=== PATIENT | male | born 1960 | race African-American/Black ===

== ENCOUNTER 2018-01-16 23:19 | Observation (INO) | payer BC, SELFPAY ==
[2018-01-16] MEDS ORDERED: ASPIRIN 325 MG TAB ONE (23:42)
[2018-01-16] MEDS ORDERED: METOPROLOL TARTRATE 5 MG/5 ML INJ IV ONE (23:42)
[2018-01-16 23:45] LABS: Absolute Lymphocytes (CBC) 2.5 K/uL (0.7-4.9); Absolute Monocytes 0.8 K/uL (0.1-1.3); Absolute Neutrophil 5.6 K/uL (1.8-8.0); Basophils % 0.6 % (0-1.3); Eosinophils % 4.5 % (0-4.4); Hematocrit 48.9 % (39.6-49.0); Lymphocytes % 27.1 % (15.3-44.8); MCH 31.6 pg (27.0-35.0); MCV 92.8 fL (80-100); MPV 9.2 fL (7.6-11.3); Monocytes % 8.3 % (3.3-12.3); RBC Red Blood Cell Count 5.27 M/uL (4.33-5.43)
[2018-01-16 23:51] LABS: Protime INR 0.97
[2018-01-17 00:05] LABS: ALT/SGPT 24 U/L (12-78); AST/SGOT 15 U/L (15-37); Albumin 3.6 g/dL (3.4-5.0); Alkaline Phosphatase 184 U/L (45-117); BUN Blood Urea Nitrogen 10 mg/dL (7-18); Bicarbonate 28 mmol/L (21-32); Bilirubin Direct < 0.1 mg/dL (0-0.2); Bilirubin Total 0.2 mg/dL (0.2-1.0); CKMB Creatine Kinase MB 1.2 ng/mL (0.3-3.6); Creatine Phosphokinase 128 U/L (39-308); Glucose Level 145 mg/dL (74-106); Magnesium 2.1 mg/dL (1.8-2.4); NT PRO-BNP 41 pg/mL (<125); Potassium 3.3 mmol/L (3.5-5.1); Protein, Total 8.5 g/dL (6.4-8.2); Sodium Level 143 mmol/L (136-145)
[2018-01-17] MEDS ORDERED: METOPROLOL TARTRATE 5 MG/5 ML INJ IV ONE (00:11)
[2018-01-17] MEDS ORDERED: ENOXAPARIN 100 MG/ML SYR SQ ONE (00:26)
[2018-01-17] MEDS ORDERED: METOPROLOL TAR 50 MG TAB ONE (00:26)
[2018-01-17] MEDS ORDERED: dilTIAZem HCl 50 MG/10 ML VIAL IV ONE (00:40)
--- NOTE | 2018-01-17 01:31 | EDPHYS ---
Physician Documentation [facility] Name: Jl aLra Age: 57 yrs Sex: Male : 1960 Arrival Date: 01/16/2018 Time: 23:22 Bed 2 Private MD: ED Physician Basilio Hung HPI: 01/17 00:23 This 57 yrs old Black Male presents to ER via Wheelchair with complaints of pm1 Palpitations. 00:23 The patient presents with a history of heart racing. Context: The symptoms occur at pm1 rest. Onset: The symptoms/episode began/occurred today, at 22:00. Duration: The patient or guardian reports a single episode, that is still ongoing. Modifying factors: The symptoms are aggravated by light activity, Standing The symptoms are alleviated by nothing. Associated signs and symptoms: Pertinent positives: chest pain, lightheadedness, SOB, Pertinent negatives: fever, nausea, vomiting. Severity of symptoms: in the emergency department the symptoms are unchanged. The patient has experienced similar episodes in the past, a few times, with the last episode occurring About 1 year ago. Patient was treated in [place] ER and transfer here to this facility. Patient had atrial fibrillation / flutter and was medically managed. Patient decided to stop taking the medications shortly after discharge from the hospital 1 year ago. The patient has not recently seen a physician. Patient is not currently taking any medications. Historical: - Allergies: 01/16 23:38 No Known Allergies; lp1 - Home Meds: 23:38 None [Active]; lp1 - PMHx: 23:38 Hypertension; lp1 - PSHx: 23:38 None; lp1 - Immunization history:: Adult Immunizations up to date. - Social history:: Smoking status: Patient uses tobacco products, smokes one pack cigarettes per day. - Ebola Screening: : No symptoms or risks identified at this time. ROS: 01/17 00:31 Constitutional: Negative for fever, chills, and weight loss, Eyes: Negative for injury, pm1 pain, redness, and discharge, ENT: Negative for injury, pain, and discharge, Neck: Negative for injury, pain, and swelling. Abdomen/GI: Negative for abdominal pain, nausea, vomiting, diarrhea, and constipation, Back: Negative for injury and pain, : Negative for injury, bleeding, discharge, and swelling, MS/Extremity: Negative for injury and deformity, Skin: Negative for injury, rash, and discoloration, Neuro: Negative for headache, weakness, numbness, tingling, and seizure. Cardiovascular: Positive for chest pain, of the anterior aspect of left upper chest, palpitations, Negative for edema. Respiratory: Positive for shortness of breath, Negative for cough, wheezing. Exam: 00:31 Constitutional: This is a well developed, well nourished patient who is awake, alert, pm1 and in no acute distress. Head/Face: Normocephalic, atraumatic. Eyes: Pupils equal round and reactive to light, extra-ocular motions intact. Lids and lashes normal. Conjunctiva and sclera are non-icteric and not injected. Cornea within normal limits. Periorbital areas with no swelling, redness, or edema. ENT: Nares patent. No nasal discharge, no septal abnormalities noted. Tympanic membranes are normal and external auditory canals are clear. Oropharynx with no redness, swelling, or masses, exudates, or evidence of obstruction, uvula midline. Mucous membranes moist. Neck: Trachea midline, no thyromegaly or masses palpated, and no cervical lymphadenopathy. Supple, full range of motion without nuchal rigidity, or vertebral point tenderness. No Meningismus. Chest/axilla: Normal chest wall appearance and motion. Nontender with no deformity. No lesions are appreciated. 00:31 Respiratory: Lungs have equal breath sounds bilaterally, clear to auscultation and percussion. No rales, rhonchi or wheezes noted. No increased work of breathing, no retractions or nasal flaring. Abdomen/GI: Soft, non-tender, with normal bowel sounds. No distension or tympany. No guarding or rebound. No evidence of tenderness throughout. Back: No spinal tenderness. No costovertebral tenderness. Full range of motion. Skin: Warm, dry with normal turgor. Normal color with no rashes, no lesions, and no evidence of cellulitis. MS/ Extremity: Pulses equal, no cyanosis. Neurovascular intact. Full, normal range of motion. 00:31 Cardiovascular: Rate: tachycardic, Rhythm: irregular, Pulses: no pulse deficits are appreciated, Heart sounds: normal, normal S1and S2, no murmur, no rub, no gallop, Edema: is not appreciated. 00:31 ECG was reviewed by the Attending Physician. Initial ECG: Atrial flutter with variable AV block, 148 bpm. After lopressor IV: Atrial flutter 2:1, BPM 119 00:31 Neuro: Orientation: is normal, Motor: is normal, moves all fours. Vital Signs: 01/16 23:37 BP 191 / 100; Pulse 140; Resp 22; Temp 98.4(O); Pulse Ox 100% on R/A; Weight 99.79 kg; lp1 Height 5 ft. 7 in. (170.18 cm); Pain 6/10; 23:45 BP 143 / 110; Pulse 139; Resp 18; ak1 23:50 BP 164 / 113; Pulse 118; Resp 16; Pulse Ox 100% ; ak1 01/17 00:13 BP 162 / 108; Pulse 120; Resp 18; Pulse Ox 100% on R/A; ak1 00:28 BP 152 / 108; Pulse 120; Resp 20; Pulse Ox 100% on R/A; ak1 00:57 BP 126 / 106; Pulse 120; Resp 20; Pulse Ox 97% on R/A; ak1 01:13 BP 130 / 97; Pulse 121; Resp 20; Pulse Ox 98% on R/A; mt 01:32 BP 119 / 99; Pulse 132; Resp 20; Pulse Ox 98% on R/A; mt 02:38 BP 109 / 99; Pulse 123; Resp 20; Pulse Ox 98% on R/A; Pain 0/10; lp1 03:30 BP 112 / 93; Pulse 121; Resp 20; Pulse Ox 99% on R/A; lp1 01/16 23:37 Body Mass Index 34.46 (99.79 kg, 170.18 cm) lp1 MDM: 01/16 23:31 Patient medically screened. pm1 01/17 00:28 ED course: Dr. Hung recommended Cardizem 10 mg IV since Lopressor is currently not pm1 effective. Current heart rate 119. 00:35 Data reviewed: vital signs. Data interpreted: Pulse oximetry: on room air is 100 %. pm1 Interpretation: normal. Counseling: I had a detailed discussion with the patient and/or guardian regarding: the historical points, exam findings, and any diagnostic results supporting the discharge/admit diagnosis, lab results, radiology results, the need for further work-up and treatment in the hospital. 00:55 ED course: Dr. Hung recommend consultation with cardiology since no improvement with pm1 Cardizem . 01:05 ED course: Dr. Chen answering service contacted . pm1 01:28 Physician consultation: Lillian Patino MD was called at 01:28, was contacted at 01:28, pm1 regarding admission, patient's condition, and will see patient in ED. 01/16 23:34 Order name: Basic Metabolic Panel; Complete Time: 00:10 pm01/16 23:34 Order name: CBC with Diff; Complete Time: 00:10 pm01/16 23:34 Order name: Ckmb; Complete Time: 00:10 pm01/16 23:34 Order name: CPK; Complete Time: 00:10 pm01/16 23:34 Order name: LFT's; Complete Time: 00:10 pm01/16 23:34 Order name: Magnesium; Complete Time: 00:10 pm01/16 23:34 Order name: NT PRO-BNP; Complete Time: 00:10 pm01/16 23:34 Order name: PT-INR; Complete Time: 00:10 pm01/16 23:34 Order name: Ptt, Activated; Complete Time: 00:10 pm01/16 23:34 Order name: Troponin (emerg Dept Use Only); Complete Time: 00:30 pm1 01/16 23:34 Order name: XRAY Chest (1 view) pm1 01/16 23:34 Order name: EKG; Complete Time: 23:35 pm01/16 23:34 Order name: Cardiac monitoring; Complete Time: 23:35 pm01/16 23:34 Order name: EKG - Nurse/Tech; Complete Time: 23:35 pm1 01/16 23:34 Order name: IV Saline Lock; Complete Time: 23:35 pm1 01/16 23:34 Order name: Labs collected and sent; Complete Time: 23:35 pm01/16 23:34 Order name: O2 Per Protocol; Complete Time: 23:35 pm01/16 23:34 Order name: O2 Sat Monitoring; Complete Time: 23:35 pm1 Administered Medications: 01/16 23:40 Drug: Aspirin 325 mg Route: PO; ak1 23:45 Follow up: BP 143 / 110; Pulse 139 bpm; Resp 18 bpm ak1 23:45 Drug: Lopressor 5 mg Route: IVP; Site: left antecubital; ak1 23:50 Drug: Lopressor 5 mg Route: IVP; Site: left antecubital; ak1 01/17 00:12 Drug: Lopressor 5 mg Route: IVP; Site: left antecubital; ak1 00:12 Follow up: Response: No adverse reaction ak1 00:28 Drug: Lovenox 1 mg/kg Route: Sub-Q; Site: right lower abdomen; ak1 00:29 Follow up: Response: No adverse reaction ak1 00:28 Drug: Lopressor (metoprolol TARTRATE) 50 mg Route: PO; ak1 00:30 Follow up: Response: No adverse reaction ak1 00:40 Drug: Cardizem 10 mg Route: IVP; Site: left antecubital; ak1 01:48 Follow up: Response: No adverse reaction lp1 01:47 Drug: NS 0.9% 1000 ml Route: IV; Rate: 125 ml/hr; Site: left antecubital; lp1 02:36 Follow up: IV Status: IV converted to saline lock lp1 02:32 Drug: Potassium Effervescent Tablet 50 mEq Route: PO; lp1 03:58 Follow up: Response: No adverse reaction lp1 Disposition: 04:25 Co-signature as Attending Physician, Basilio Hung MD I agree with the assessment and tw4 plan of care. Attestation: The patient's history, exam findings, diagnostics, and a summary of any interventions or procedures was reviewed in detail with Kamar Mccullough NP. Disposition: 01/17/18 01:30 Hospitalization ordered by Lillian Patino for Inpatient Admission. Preliminary diagnosis are Atrial fibrillation and flutter, Chest pain, unspecified, Shortness of breath. - Bed requested for Telemetry/MedSurg (Inpatient). - Status is Inpatient Admission. lp1 - Condition is Stable. - Problem is new. - Symptoms have improved. UTI on Admission? No Signatures: Dispatcher [employer] EDMS Sydnee Whitlock RN RN lp1 Eliane Mcgrath RN RN ak1 Daniela Quinonez RN RN cg Marinas, Patrick, NP NP Basilio Patrick MD MD tw4 Corrections: (The following items were deleted from the chart) 01:30 01:30 Hospitalization Ordered by Lillian Patino MD for Inpatient Admission. Preliminary pm1 diagnosis is Atrial fibrillation and flutter. Bed requested for Telemetry/MedSurg (Inpatient). Status is Inpatient Admission. Condition is Stable. Problem is new. Symptoms have improved. UTI on Admission? No. pm1 01:43 01:30 01/17/2018 01:30 Hospitalization Ordered by Lillian Patino MD for Inpatient cg Admission. Preliminary diagnosis is Atrial fibrillation and flutter; Chest pain, unspecified; Shortness of breath. Bed requested for Telemetry/MedSurg (Inpatient). Status is Inpatient Admission. Condition is Stable. Problem is new. Symptoms have improved. UTI on Admission? No. pm1 01:49 01:43 01/17/2018 01:30 Hospitalization Ordered by Lillian Patino MD for Inpatient cg Admission. Preliminary diagnosis is Atrial fibrillation and flutter; Chest pain, unspecified; Shortness of breath. Bed requested for Telemetry/MedSurg (Inpatient). Status is Inpatient Admission. Condition is Stable. Problem is new. Symptoms have improved. UTI on Admission? No. cg 03:58 01:49 01/17/2018 01:30 Hospitalization Ordered by Lillian Patino MD for Inpatient lp1 Admission. Preliminary diagnosis is Atrial fibrillation and flutter; Chest pain, unspecified; Shortness of breath. Bed requested for Telemetry/MedSurg (Inpatient). Status is Inpatient Admission. Condition is Stable. Problem is new. Symptoms have improved. UTI on Admission? No. cg
--- NOTE | 2018-01-17 01:31 | ER ---
Nurse's Notes [facility] Name: Jl Lara Age: 57 yrs Sex: Male : 1960 Arrival Date: 01/16/2018 Time: 23:22 Bed 2 Private MD: Diagnosis: Atrial fibrillation and flutter;Chest pain, unspecified;Shortness of breath Presentation: 01/16 23:36 Presenting complaint: Patient states: "I felt my heart racing"; States feeling lp1 palpitations that began at 2200, complaint of feeling dizzy upon standing, short of breath, chest pain. Transition of care: patient was not received from another setting of care. Onset of symptoms was January 16, 2018 at 22:00. Risk Assessment: Do you want to hurt yourself or someone else? Patient reports no desire to harm self or others. Initial Sepsis Screen: Does the patient meet any 2 criteria? No. Patient's initial sepsis screen is negative. Does the patient have a suspected source of infection? No. Patient's initial sepsis screen is negative. Care prior to arrival: None. 23:36 Method Of Arrival: Wheelchair lp1 23:36 Acuity: WILMA 2 lp1 Triage Assessment: 23:55 General: Appears in no apparent distress. Behavior is calm, cooperative. ak1 01/17 00:03 Pain: Complains of pain in chest. EENT: No signs and/or symptoms were reported ak1 regarding the EENT system. Neuro: No deficits noted. Cardiovascular: Reports chest pain, diaphoresis, lightheadedness, palpitations, shortness of breath, Rhythm is atrial flutter. Respiratory: Reports shortness of breath. GI: No signs and/or symptoms were reported involving the gastrointestinal system. : No signs and/or symptoms were reported regarding the genitourinary system. Derm: No signs and/or symptoms reported regarding the dermatologic system. Musculoskeletal: No signs and/or symptoms reported regarding the musculoskeletal system. Historical: - Allergies: 01/16 23:38 No Known Allergies; lp1 - Home Meds: 23:38 None [Active]; lp1 - PMHx: 23:38 Hypertension; lp1 - PSHx: 23:38 None; lp1 - Immunization history:: Adult Immunizations up to date. - Social history:: Smoking status: Patient uses tobacco products, smokes one pack cigarettes per day. - Ebola Screening: : No symptoms or risks identified at this time. Screenin:38 Abuse screen: Denies threats or abuse. Denies injuries from another. Nutritional lp1 screening: No deficits noted. Tuberculosis screening: No symptoms or risk factors identified. Fall Risk None identified. Assessment: 01/17 00:29 Reassessment: Patient appears in no apparent distress at this time. No changes from ak1 previously documented assessment. see triage assessment. 02:00 Reassessment: Patient appears in no apparent distress at this time. Patient and/or lp1 family updated on plan of care and expected duration. Pain level reassessed. Patient is alert, oriented x 3, equal unlabored respirations, skin warm/dry/pink. Patient aware of admission. Vital Signs: 01/16 23:37 BP 191 / 100; Pulse 140; Resp 22; Temp 98.4(O); Pulse Ox 100% on R/A; Weight 99.79 kg; lp1 Height 5 ft. 7 in. (170.18 cm); Pain 6/10; 23:45 BP 143 / 110; Pulse 139; Resp 18; ak1 23:50 BP 164 / 113; Pulse 118; Resp 16; Pulse Ox 100% ; ak1 01/17 00:13 BP 162 / 108; Pulse 120; Resp 18; Pulse Ox 100% on R/A; ak1 00:28 BP 152 / 108; Pulse 120; Resp 20; Pulse Ox 100% on R/A; ak1 00:57 BP 126 / 106; Pulse 120; Resp 20; Pulse Ox 97% on R/A; ak1 01:13 BP 130 / 97; Pulse 121; Resp 20; Pulse Ox 98% on R/A; mt 01:32 BP 119 / 99; Pulse 132; Resp 20; Pulse Ox 98% on R/A; mt 02:38 BP 109 / 99; Pulse 123; Resp 20; Pulse Ox 98% on R/A; Pain 0/10; lp1 03:30 BP 112 / 93; Pulse 121; Resp 20; Pulse Ox 99% on R/A; lp1 01/16 23:37 Body Mass Index 34.46 (99.79 kg, 170.18 cm) lp1 ED Course: 01/16 23:22 Patient arrived in ED. es 23:28 Kamar Mccullough NP is PHCP. pm1 23:28 Basilio Hung MD is Attending Physician. pm1 23:37 Triage completed. lp1 23:38 Eliane Mcgrath RN is Primary Nurse. ak1 23:38 Arm band placed on left wrist. lp1 23:39 Patient has correct armband on for positive identification. Placed in gown. Bed in low lp1 position. Call light in reach. court recording monitor on. Pulse ox on. NIBP on. 23:39 Inserted saline lock: 20 gauge in left antecubital area, using aseptic technique. Blood lp1 collected. By Loyda Lutz RN. 23:39 EKG done, by ED staff, reviewed by Kamar Mccullough NP. lp1 01/17 00:02 X-ray completed. Portable x-ray completed in exam room. Patient tolerated procedure kw well. 00:22 XRAY Chest (1 view) In Process Unspecified. EDMS 01:29 Lillian Patino MD is Hospitalizing Provider. pm1 01:48 No provider procedures requiring assistance completed. Patient admitted, IV remains in lp1 place. 01:49 Report received from Eliane Mcgrath RN. lp1 Administered Medications: 01/16 23:40 Drug: Aspirin 325 mg Route: PO; ak1 23:45 Follow up: BP 143 / 110; Pulse 139 bpm; Resp 18 bpm ak1 23:45 Drug: Lopressor 5 mg Route: IVP; Site: left antecubital; ak1 23:50 Drug: Lopressor 5 mg Route: IVP; Site: left antecubital; ak1 01/17 00:12 Drug: Lopressor 5 mg Route: IVP; Site: left antecubital; ak1 00:12 Follow up: Response: No adverse reaction ak1 00:28 Drug: Lovenox 1 mg/kg Route: Sub-Q; Site: right lower abdomen; ak1 00:29 Follow up: Response: No adverse reaction ak1 00:28 Drug: Lopressor (metoprolol TARTRATE) 50 mg Route: PO; ak1 00:30 Follow up: Response: No adverse reaction ak1 00:40 Drug: Cardizem 10 mg Route: IVP; Site: left antecubital; ak1 01:48 Follow up: Response: No adverse reaction lp1 01:47 Drug: NS 0.9% 1000 ml Route: IV; Rate: 125 ml/hr; Site: left antecubital; lp1 02:36 Follow up: IV Status: IV converted to saline lock lp1 02:32 Drug: Potassium Effervescent Tablet 50 mEq Route: PO; lp1 03:58 Follow up: Response: No adverse reaction lp1 Outcome: 01:30 Decision to Hospitalize by Provider. pm1 01:52 Condition: stable lp1 01:52 Instructed on the need for admit. 03:00 Admitted to Med/surg accompanied by nurse, via wheelchair, room 207, with chart, Report lp1 called to Jane Thakkar RN 03:58 Patient left the ED. lp1 Signatures: Dispatcher [employer] EDMS Tricia Goyal Kimberlee kw Pena, Laura, RN RN lp1 Eliane Mcgrath RN RN ak1 Kamar Mccullough, FIELD MECHANIC/SITE LEAD FIELD MECHANIC/SITE LEAD pm1 Miriam Venegas mt Corrections: (The following items were deleted from the chart) 01/16 23:41 23:37 BP 191 / 100; Pulse 140bpm; Resp 22bpm; Pulse Ox 100% RA; Pain 6/10; lp1 lp1
[2018-01-17] MEDS ORDERED: NA CHLORIDE 0.9% 1,000 ML ONE (01:48)
[2018-01-17] MEDS ORDERED: POTASSIUM 25 MEQ EFFERV TAB ONE (02:29)
--- NOTE | 2018-01-17 02:41 | P.HP ---
Certification for Inpatient Patient admitted to: Observation With expected LOS: <2 Midnights Practitioner: I am a practitioner with admitting privileges, knowledge of patient current condition, hospital course, and medical plan of care. Services: Services provided to patient in accordance with Admission requirements found in Title 42 Section 412.3 of the Code of Federal Regulations Patient History Date of Service: 01/17/18 Reason for admission: Atrial flutter History of Present Illness: Mr. Lara is a 57-year-old male history of hypertension, tobacco abuse, previous episode of atrial flutter. According to him, he is to take about 10 pills because this problem, prescribed by his drosophere operator, however, since 5 months ago he stopped his medication since his was feeling better. About 2200 last night, the patient started feeling palpitation, associated with dizziness. He also had chest pain, located in his left parasternal area, not radiated, about 5 /10 of intensity. At arrival to ED, his HR was of 150s. He also was hypertensive, BP was 190/100. No history of fever. The patient was treated with IV Cardizem and Lopressor, his HR final decreased to 110-120. Chest pain resolved when the HR was better controlled. Laboratory work remarkable for hypokalemia, 3.3, troponin I is negative so far. Allergies No Known Allergies Allergy (Verified 05/09/17 10:45) Home medications list reviewed: Yes Home Medications: Lisinopril [Prinivil*] 20 mg PO BID #60 tab 03/17/17 - Past Medical/Surgical History Diabetic: No -: HTN -: Tobacco abuse -: Atrial flutter Past Surgical History: Reviewed- Non-Contributory Psychosocial/ Personal History: The patient is 2 years. He has no children. 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 moist/pink, EOMI, Sclerae nonicteric Neck: Supple, 2+ carotid pulse no bruit, No LAD, Without JVD or thyroid abnormality Respiratory: Clear to auscultation bilaterally, Normal air movement Cardiovascular: Normal S1 S2, Irregular heart rate/rhythm Gastrointestinal: Normal bowel sounds, No tenderness Musculoskeletal: No tenderness Integumentary: No rashes Neurological: Normal speech, Normal strength at 5/5 x4 extr, Normal tone, Normal affect Lymphatics: No axilla or inguinal lymphadenopathy - Studies Laboratory Data (last 24 hrs) 01/16/18 23:30: PT 11.5, INR 0.97, APTT 36.6 01/16/18 23:30: WBC 9.4, Hgb 16.6, Hct 48.9, Plt Count 268 01/16/18 23:30: Sodium 143, Potassium 3.3 L, BUN 10, Creatinine 1.10, Glucose 145 H, Magnesium 2.1, Total Bilirubin 0.2, AST 15, ALT 24, Alkaline Phosphatase 184 H Assessment and Plan - Problems (Diagnosis) (1) Atrial flutter Current Visit: Yes Status: Acute Qualifiers: Atrial flutter type: typical Qualified Code(s): I48.3 - Typical atrial flutter (2) Tobacco abuse Current Visit: Yes Status: Acute (3) HTN (hypertension) Onset Date: 09/23/15 Current Visit: No Status: Chronic Qualifiers: Hypertension type: essential hypertension Qualified Code(s): I10 - Essential (primary) hypertension - Plan Mr. Lara will be admitted to the hospital due to atrial flutter with 2:1 block. Rate has been better controlled with IV Cardizem and Lopressor. Will start full anticoagulation and keep him NPO in case the patient require electric cardioversion. Will continue on a beta-florentin, consult drosophere operator. Will order echo in the a.m. - Advance Directives Does patient have a Living Will: No Does patient have a Durable POA for Healthcare: No - Code Status/Comfort Care Code Status Assessed: Yes Code Status: Full Code
[2018-01-17] MEDS ORDERED: ONDANSETRON 4 MG/2 ML VIAL IV PRN (02:55)
[2018-01-17] MEDS ORDERED: ACETAMINOPHEN 500 MG TAB PO PRN (02:55)
[2018-01-17 03:49] VITALS: BMI 36.9
[2018-01-17 04:52] LABS: Urine Appearance CLEAR; Urine Bilirubin NEGATIVE (NEG); Urine Blood NEGATIVE (NEG); Urine Color YELLOW; Urine Glucose NEGATIVE (NEG); Urine Protein NEGATIVE (NEG); Urine Urobilinogen 0.2 mg/dL (0.2-1.0)
[2018-01-17] MEDS: METOPROLOL TAR 25 MG TAB PO SCH ×2 (05:08→17:02)
[2018-01-17 05:22] LABS: Urine Bacteria <20 /HPF (NONE SEEN); Urine Culture Reflex Order NOT NEEDED; Urine Mucus HEAVY /HPF (NONE SEEN); Urine RBC NONE SEEN /HPF (NONE SEEN)
[2018-01-17 05:48] VITALS: O2SAT 94
--- NOTE | 2018-01-17 07:06 | RAD REPORT ---
EXAM DESCRIPTION: RAD - Chest Single View - 01/17/2018 12:21 am CLINICAL HISTORY: Palpitations, chest pain, shortness of breath COMPARISON: None. TECHNIQUE: AP portable chest image was obtained 2352 hours . FINDINGS: Lungs are clear. Heart and vasculature are normal. No measurable pleural effusion and no p neumothorax. No gross bony abnormality seen. No acute aortic findings suspected. IMPRESSION: No acute cardiopulmonary process.
--- NOTE | 2018-01-17 07:18 | EKG ---
Test Date: 2018-01-17 Test Time: 00:10:18 Seafood Process Worker: CASE MEASUREMENT RESULTS: Intervals: Rate: 119 [place]: QRSD: 80 QT: 342 QTc: 481 [place]: P: 248 OK: QRS: 18 T: -72 INTERPRETIVE STATEMENTS: Atrial flutter with 2:1 AV conduction Left ventricular hypertrophy with repolarization abnormality Anterior infarct, age undetermined Abnormal ECG Compared to ECG 01/16/2018 23:56:08 Myocardial infarct finding now present ST (T wave) deviation no longer present T-wave abnormality no longer present Possible ischemia no longer present Electronically Signed On 01-17-18 07:17:58 CDT by Wilfredo Morel
--- NOTE | 2018-01-17 07:19 | EKG ---
Test Date: 2018-01-16 Test Time: 23:29:05 Bun Icer: CASE MEASUREMENT RESULTS: Intervals: Rate: 148 [place]: QRSD: 86 QT: 346 QTc: 543 [place]: P: 269 [place]: QRS: 28 T: 264 INTERPRETIVE STATEMENTS: Atrial flutter with variable AV block Abnormal ECG Compared to ECG 09/22/2015 13:05:23 Sinus bradycardia no longer present Electronically Signed On 01-17-18 07:19:23 CDT by Wilfredo Morel
--- NOTE | 2018-01-17 07:19 | EKG ---
Test Date: 2018-01-16 Test Time: 23:56:08 Technology Resource Teacher: CASE MEASUREMENT RESULTS: Intervals: Rate: 118 NM: QRSD: 126 QT: 396 QTc: 555 [place]: P: 98 NM: QRS: 30 T: 60 INTERPRETIVE STATEMENTS: Atrial flutter with variable AV block T wave abnormality, non specific Abnormal ECG Compared to ECG 01/16/2018 23:29:05 no significant change from previous ECG Electronically Signed On 01-17-18 07:19:01 CDT by Wilfredo Morel
[2018-01-17] MEDS ORDERED: Enoxaparin 120 MG/0.8 ML SYR SQ SCH (12:00)
--- NOTE | 2018-01-17 12:13 | P.DS ---
Admission Date: 01/17/18 Discharge Date: 01/17/18 Primary Care Provider: none Disposition: ROUTINE DISCHARGE Discharge Condition: GOOD Reason for Admission: Atrial flutter Consultations: Cardiology-Dr. Herrera Procedures: Echocardiogram: - Problems (1) Atrial flutter Current Visit: Yes Status: Acute Qualifiers: Atrial flutter type: typical Qualified Code(s): I48.3 - Typical atrial flutter (2) Tobacco abuse Current Visit: Yes Status: Chronic (3) Fatty liver Onset Date: 03/14/17 Current Visit: No Status: Chronic (4) HTN (hypertension) Onset Date: 09/23/15 Current Visit: No Status: Chronic Qualifiers: Hypertension type: essential hypertension Qualified Code(s): I10 - Essential (primary) hypertension (5) Obesity Current Visit: No Status: Chronic Qualifiers: Obesity type: unspecified obesity type Obesity classification: adult class 2 (BMI 35 - 39.9) Serious obesity comorbidity presence: with serious comorbidity Body mass index: BMI 38.0-38.9 Qualified Code(s): E66.01 - Morbid (severe) obesity due to excess calories; Z68.38 - Body mass index (BMI) 38.0-38.9, adult (6) Obstructive sleep apnea Current Visit: No Status: Suspected Brief History of Present Illness: 57-year-old male presented emergency room with chest pain, dizziness and palpitations. Patient has a history of atrial fibrillation and hypertension. Patient has been non compliant with his medication. He decided to stop this medication about 5 months ago. Patient presented to emergency room found to be in atrial flutter. Patient given medication and admitted for treatment. Hospital Course: Patient admitted for chest pain, palpitations and dizziness. Patient found to be in atrial flutter. Patient with history of atrial fibrillation in the past but non compliant. Patient stopped his medications about 5 months ago. Patient was given medication. Rate better controlled. Patient also started on anti coagulation therapy. Patient evaluated by Cardiology. No further intervention is required at this time. Cardiology recommends to continue with metoprolol 25 mg 1 pill twice daily. Patient will also be started on anti coagulation therapy-Eliquis 5 mg 1 pill twice daily. Compliance was addressed in detail with the patient. Patient understands this. Recommendation is for the patient to follow up with cardiology in 1 week to follow up this hospitalization and continue his care. Patient has hypertension. Medications have been adjusted. Patient will continue with metoprolol 25 mg 1 pill twice daily. Recommendation is to maintain blood pressures less 150/80. Further adjustment can be done by his PCP. Patient has hyperlipidemia. Patient will continue with medication-Lipitor 10 mg daily. Patient likely has underlying obstructive sleep apnea. Recommendation is for the patient to have a sleep study done as an outpatient to further evaluate. Vital Signs/Physical Exam: Temp Pulse Resp BP Pulse Ox 98.4 F 119 H 20 119/79 96 01/17/18 08:00 01/17/18 08:00 01/17/18 08:00 01/17/18 08:00 01/17/18 08:00 General: Alert, In no apparent distress, Oriented x3, Cooperative HEENT: Atraumatic Neck: Supple Respiratory: Clear to auscultation bilaterally, Normal air movement Cardiovascular: Irregular heart rate/rhythm (Atrial flutter rate better controlled) Gastrointestinal: Normal bowel sounds, Soft and benign, Non-distended, No tenderness, No masses, No rebound, No guarding Musculoskeletal: No erythema, No tenderness, No warmth Integumentary: No tenderness/swelling, No erythema, No warmth, No cyanosis Neurological: Normal speech, Normal strength at 5/5 x4 extr, Normal tone, Normal affect Laboratory Data at Discharge: WBC 9.4 K/uL (4.3-10.9) 01/16/18 23:30 Hgb 16.6 g/dL (13.6-17.9) 01/16/18 23:30 Hct 48.9 % (39.6-49.0) 01/16/18 23:30 Plt Count 268 K/uL (152-406) 01/16/18 23:30 PT 11.5 SECONDS (9.5-12.5) 01/16/18 23:30 INR 0.97 01/16/18 23:30 APTT 36.6 SECONDS (24.3-36.9) 01/16/18 23:30 Sodium 143 mmol/L (136-145) 01/16/18 23:30 Potassium 3.3 mmol/L (3.5-5.1) L 01/16/18 23:30 BUN 10 mg/dL (7-18) 01/16/18 23:30 Creatinine 1.10 mg/dL (0.55-1.3) 01/16/18 23:30 Glucose 145 mg/dL (74-106) H 01/16/18 23:30 Magnesium 2.1 mg/dL (1.8-2.4) 01/16/18 23:30 Total Bilirubin 0.2 mg/dL (0.2-1.0) 01/16/18 23:30 AST 15 U/L (15-37) 01/16/18 23:30 ALT 24 U/L (12-78) 01/16/18 23:30 Alkaline Phosphatase 184 U/L (45-117) H 01/16/18 23:30 Troponin I 0.14 ng/mL (0.0-0.045) H 01/17/18 10:10 Home Medications: Apixaban [Eliquis] 5 mg PO BID #60 tablet 01/17/18 Atorvastatin Calcium [Lipitor] 10 mg PO BEDTIME #30 tab 01/17/18 Metoprolol Tartrate [Lopressor*] 25 mg PO BID 6AM 6PM #60 tab 01/17/18 New Medications: Apixaban [Eliquis] 5 mg PO BID #60 tablet Atorvastatin Calcium [Lipitor] 10 mg PO BEDTIME #30 tab Metoprolol Tartrate [Lopressor*] 25 mg PO BID 6AM 6PM #60 tab Patient Discharge Instructions: 1. Patient will need a follow up with his PCP in 1 week to follow up this hospitalization. Patient will be provided information on PCPs in the area. 2. Patient admitted for chest pain, palpitations and dizziness. Patient found to be in atrial flutter. Patient with history of atrial fibrillation in the past but non compliant. Patient stopped his medications about 5 months ago. Patient was given medication. Rate better controlled. Patient also started on anti coagulation therapy. Patient evaluated by Cardiology. No further intervention is required at this time. Cardiology recommends to continue with metoprolol 25 mg 1 pill twice daily. Patient will also be started on anti coagulation therapy-Eliquis 5 mg 1 pill twice daily. Compliance was addressed in detail with the patient. Patient understands this. Recommendation is for the patient to follow up with cardiology in 1 week to follow up this hospitalization and continue his care. 3. Patient has hypertension. Medications have been adjusted. Patient will continue with metoprolol 25 mg 1 pill twice daily. Recommendation is to maintain blood pressures less 150/80. Further adjustment can be done by his PCP. 4. Patient has hyperlipidemia. Patient will continue with medication- Lipitor 10 mg daily. 5. Patient likely has underlying obstructive sleep apnea. Recommendation is for the patient to have a sleep study done as an outpatient to further evaluate. Diet: AHA Activity: Ad robina Time spent managing pt's care (in minutes): 55
[2018-01-17 13:04] LABS: Thyroid Stimulating Hormone 2.1 uIU/mL (0.36-3.74)
[2018-01-17 16:53] VITALS: BP 142/83; TEMP 97.6
--- NOTE | 2018-01-17 23:18 | CON ---
Date of Consultation: 01/17/2018 Additional Admitting Physician: Oliver Davenport DO. Reason For Consultation: Atrial fibrillation and flutter. History Of Present Illness: Mr. Lara is a 57-year-old black male with history of hypertension, has h ad a history of atrial fibrillation before, in 2016 had a negative echocardiogram and negative Lexisc an, was placed on some medication at that point, but he basically quit taking his medication, came in with palpitation, was found to have atrial flutter to 2-1 ratio. This has already resolved on metop rolol 25 mg b.i.d. He is on Lovenox right now. He is asymptomatic. Denied any chest pain, nausea, vomiting, diaphoresis, PND, orthopnea, pedal edema, or syncope. His troponin was 0.19. Glucose was 145. His potassium was 3.3. Past Medical History: Hypertension and paroxysmal atrial fibrillation. Allergies: NONE. Review of Systems: Negative. Social History: Negative. Medications At Home: Supposed to be Prinivil, but I am not so sure he is taking it. Family History: Noncontributory. Physical Examination: Vital Signs: Stable. He is in a sinus rhythm now. Afebrile. HEENT: Negative. Neck: Supple with no bruit. Chest: Clear. Cardiac: Revealed a regular rhythm and rate without any murmurs, gallops, or rubs. Abdomen: Benign. Extremities: Revealed no clubbing, cyanosis, or edema. Diagnostic Data: As stated earlier. Impression And Plan: 1.Paroxysmal atrial fibrillation, resolved on beta-florentin. 2.Hypertension. 3.Noncompliance. I think Mr. Lara needs to be on a beta-florentin and he should be on anticoagulant. He has a high LETY S score and echocardiogram is pending. Compliance with his medication needs to be re-addressed. He can go home as far as I am concerned on a beta-florentin and either Xarelto or Eliquis. I will leave t hat up to Dr. Davenport. I would like to see him in the office in the next 2 weeks. He has had a negat arlene stress test in 2016 and I see no need to repeat that. His potassium needs to be corrected. Elev ation in his troponin is secondary to his arrhythmia. AAKASH/MODL Voice ID: [id number] Report ID: [id number]
--- NOTE | 2018-01-18 10:19 | ECHO ---
HEIGHT: 5 ft 7 in WEIGHT: 236 lb 0 oz DATE OF STUDY: 01/18/[address]: Lillian Robledo MD 2-DIMENSIONAL: YES M.MODE: YES DOPPLER: YES COLOR FLOW: YES TDS: NO PORTABLE: NO DEFINITY: NO BUBBLE STUDY: NO DIAGNOSIS: ATRIAL FLUTTER CARDIAC HISTORY: CATHERIZATION: NO SURGERY: NO PROSTHETIC VALVE: NO PACEMAKER: NO MEASUREMENTS (cm) DIASTOLIC (NORMALS) SYSTOLIC (NORMALS) IVSd 1.3 (0.6-1.2) LA Diam 4.0 (1.9-4.0) LVEF 50% LVIDd 4.8 (3.5-5.7) LVIDs 3.6 (2.0-3.5) %FS 26% LVPWd 1.4 (0.6-1.2) Ao Diam 2.9 (2.0-3.7) 2 DIMENSIONAL ASSESSMENT: RIGHT ATRIUM: NORMAL LEFT ATRIUM: NORMAL RIGHT VENTRICLE: NORMAL LEFT VENTRICLE: NORMAL TRICUSPID VALVE: NORMAL MITRAL VALVE: NORMAL PULMONIC VALVE: NORMAL AORTIC VALVE: NORMAL PERICARDIAL EFFUSION: NONE AORTIC ROOT: NORMAL LEFT VENTRICULAR WALL MOTION: MILD GLOBAL HYPOKINESIS. DOPPLER/COLOR FLOW: TRACE OF TRICUSPID REGURGITATION NORMAL RIGHT VENTRICULAR SYSTOLIC PRESSURE. COMMENTS: MILD TRICUSPID REGURGITATION NORMAL RIGHT VENTRICULAR SYSTOLIC PRESSURE. MILD GLOBAL HYPOKINESIS. NO THROMBUS. NORMAL LEFT ATRIAL SIZE. TECHNOLOGIST: SANGEETA GAO
== END 2018-01-17 19:08 | disposition home or self-care (01) ==
LOC: ER 23:19 → INTOOBSV 01-17 02:49 → ERHOLD 01-17 02:49 → 2ND 01-17 03:22
PROVIDERS: ADMIT Internal Medicine; ATTEND Family Medicine
DX: I48.3 Typical atrial flutter (principal); I48.0 Paroxysmal atrial fibrillation; I07.1 Rheumatic tricuspid insufficiency; I10 Essential (primary) hypertension; Z91.14 Patient's other noncompliance with medication regimen; R74.8 Abnormal levels of other serum enzymes; K76.0 Fatty (change of) liver, not elsewhere classified; E66.01 Morbid (severe) obesity due to excess calories; Z68.38 Body mass index [BMI] 38.0-38.9, adult; G47.33 Obstructive sleep apnea (adult) (pediatric); E78.5 Hyperlipidemia, unspecified; F17.210 Nicotine dependence, cigarettes, uncomplicated
CPT/HCPCS: 36415; 71045; 80048; 80076; 81001; 82550; 82553; 83036; 83735; 83880; 84439; 84443; 84484; 85025; 85610; 85730; 87086; 87088; 93005; 93306; 94760; 96361; 96372; 96374; 96375; 99285; G0378; J1650; J7030

== ENCOUNTER 2018-01-26 05:12 | Inpatient (IN) | payer BC ==
[2018-01-26] MEDS ORDERED: NA CHLORIDE 0.9% 1,000 ML ONE (05:23)
[2018-01-26] MEDS ORDERED: ADENOSINE 6 MG/ 2ML VIAL IV ONE ×2 (05:23→05:29)
[2018-01-26] MEDS ORDERED: METOPROLOL TARTRATE 5 MG/5 ML INJ IV ONE (05:30)
[2018-01-26] MEDS ORDERED: Magnesium Sulfate 2gm IVPB 2 G/50 ML BAG IV ONE (05:30)
[2018-01-26] MEDS ORDERED: Mastisol Adhesive Liq ONE (05:30)
[2018-01-26] MEDS ORDERED: MIDAZOLAM HCL 2 MG/2 ML INJ ONE (05:37)
[2018-01-26] MEDS ORDERED: METOPROLOL TAR 50 MG TAB ONE (05:41)
[2018-01-26 06:02] LABS: Absolute Lymphocytes (CBC) 1.9 K/uL (0.7-4.9); Absolute Monocytes 0.7 K/uL (0.1-1.3); Absolute Neutrophil 8.1 K/uL (1.8-8.0); Basophils % 0.5 % (0-1.3); Eosinophils % 2.3 % (0-4.4); Hematocrit 46.8 % (39.6-49.0); Lymphocytes % 17.5 % (15.3-44.8); MCH 31.7 pg (27.0-35.0); MPV 9.9 fL (7.6-11.3); Monocytes % 6.4 % (3.3-12.3); RBC Red Blood Cell Count 5.04 M/uL (4.33-5.43)
[2018-01-26 06:03] LABS: Protime INR 1.27
[2018-01-26] MEDS ORDERED: dilTIAZem HCl 25 MG/5 ML VIAL IV ONE ×3 (06:12→06:24)
[2018-01-26] MEDS ORDERED: NA CHLORIDE 0.9% 100 ML IV ONE (06:15)
--- NOTE | 2018-01-26 06:29 | ER ---
Nurse's Notes [facility] Name: Jl Lara Age: 57 yrs Sex: Male : 1960 Arrival Date: 01/26/2018 Time: 05:15 Bed 4 Private MD: Juan Tinajero R Diagnosis: Palpitations;Chest Pain;shortness of breath;A fib RVR Presentation: 01/26 05:10 Presenting complaint: Patient states: that he got up to get ready for work and started fc to have chest pain on the left side. He then passed out. When he got here pt was short of breath, nauseated and diaphoretic along with his chest pain. Transition of care: patient was not received from another setting of care. Onset of symptoms was January 26, 2018 at 04:30. Risk Assessment: Do you want to hurt yourself or someone else? Patient reports no desire to harm self or others. Initial Sepsis Screen: Does the patient meet any 2 criteria? RR > 20 per min. HR > 90 bpm. Yes Does the patient have a suspected source of infection? No. Patient's initial sepsis screen is negative. Care prior to arrival: None. 05:10 Method Of Arrival: Wheelchair fc 05:10 Acuity: WILMA 2 fc Historical: - Allergies: 05:56 No Known Allergies; fc - Home Meds: 05:56 atorvastatin 10 mg oral tab 1 tab nightly [Active]; Eliquis 5 mg oral tab 1 tab 2 times fc per day [Active]; metoprolol tartrate 25 mg Oral tab 1 tab 2 times per day [Active]; - PMHx: 05:56 Hypertension; Atrial Fib; High Cholesterol; fc - Immunization history:: Last tetanus immunization: unknown. - Social history:: Smoking status: Patient uses tobacco products, smokes one pack cigarettes per day. - Ebola Screening: : Patient negative for fever greater than or equal to 101.5 degrees Fahrenheit, and additional compatible Ebola Virus Disease symptoms Patient denies exposure to infectious person Patient denies travel to an Ebola-affected area in the 21 days before illness onset. - Family history:: not pertinent. - Hospitalizations: : No recent hospitalization is reported. Screenin:10 Abuse screen: Denies threats or abuse. Nutritional screening: No deficits noted. fc Tuberculosis screening: No symptoms or risk factors identified. Fall Risk None identified. Assessment: 05:15 General: Appears distressed, uncomfortable, Behavior is cooperative, appropriate for aa1 age. Pain: Denies pain. Neuro: Level of Consciousness is awake, alert, obeys commands, Oriented to person, place, time, situation, Speech is normal. Cardiovascular: Heart tones present Pulses are palpable in right radial artery and left radial artery. Respiratory: Reports shortness of breath at rest Airway is patent Respiratory effort is pursed lip, Respiratory pattern is tachypnea. GI: No signs and/or symptoms were reported involving the gastrointestinal system. : No signs and/or symptoms were reported regarding the genitourinary system. EENT: No signs and/or symptoms were reported regarding the EENT system. Derm: Skin is intact, is healthy with good turgor, Skin is diaphoretic, Skin is normal, Skin temperature is warm. Musculoskeletal: Capillary refill < 3 seconds. 05:19 Reassessment: Dr. Del Cid at bedside with pt \T\ pt's . Will attempt cardioversion via aa1 adenosine. 06:04 Reassessment: Patient appears in no apparent distress at this time. Patient and/or aa1 family updated on plan of care and expected duration. Pain level reassessed. Patient is alert, oriented x 3, equal unlabored respirations, skin warm/dry/pink. Pt reports symptoms markedly improved. No longer diaphoretic Patient states feeling better. Patient states symptoms have improved. General: Appears comfortable, Behavior is calm. Cardiovascular: Heart tones S1 S2 present Rhythm is atrial fibrillation with rapid ventricular response. 06:42 Reassessment: Patient appears in no apparent distress at this time. No changes from aa1 previously documented assessment. Patient and/or family updated on plan of care and expected duration. Pain level reassessed. Patient is alert, oriented x 3, equal unlabored respirations, skin warm/dry/pink. Bed assignment received; pt to go up after shift change. 07:15 Reassessment: Patient appears in no apparent distress at this time. Patient and/or cc3 family updated on plan of care and expected duration. Pain level reassessed. Patient is alert, oriented x 3, equal unlabored respirations, skin warm/dry/pink. received from wind turbine machinist with ongoing Diltiazem infusion at 5 mg/hr at the left antecubital area intravenous cannula, infusing well. Noted on oxygen therapy by nasal cannula at 2 LPM saturating 98%, not in distress. Patient denies pain at this time. Patient states feeling better. Patient states symptoms have improved. 08:15 Reassessment: Patient appears in no apparent distress at this time. Patient and/or hb family updated on plan of care and expected duration. Pain level reassessed. Patient is alert, oriented x 3, equal unlabored respirations, skin warm/dry/pink. 09:30 Reassessment: Patient appears in no apparent distress at this time. Patient and/or cc3 family updated on plan of care and expected duration. Pain level reassessed. Patient is alert, oriented x 3, equal unlabored respirations, skin warm/dry/pink. Patient denies pain at this time. Vital Signs: 05:10 BP 124 / 107; Pulse 273; Resp 24; Temp 98.1(O); Pulse Ox 100% on R/A; Weight 108.86 kg fc (R); Height 5 ft. 7 in. (170.18 cm) (R); Pain 10/10; 05:32 BP 130 / 89; Pulse 164; Resp 24; Pulse Ox 98% on R/A; fc 05:38 BP 111 / 78; Pulse 126; Resp 20; Pulse Ox 96% on R/A; fc 05:54 BP 111 / 78; Pulse 135; Resp 20; Pulse Ox 100% on R/A; Pain 0/10; aa1 06:45 BP 120 / 93; Pulse 137; Resp 18; Pulse Ox 100% on R/A; Pain 0/10; aa1 07:35 BP 133 / 85; Pulse 136; Resp 15; Pulse Ox 98% on R/A; sv 08:30 BP 113 / 93; Pulse 135; Resp 24; Pulse Ox 98% on R/A; Pain 0/10; hb 09:15 BP 115 / 87; Pulse 136; Resp 22 S; Pulse Ox 99% on 2 lpm NC; Pain 0/10; cc3 05:10 Body Mass Index 37.59 (108.86 kg, 170.18 cm) ED Course: 05:10 Arm band placed on Patient placed in an exam room, on a stretcher, on rn cardiac cath, fc on pulse oximetry. 05:10 Patient has correct armband on for positive identification. Placed in gown. Bed in low fc position. Call light in reach. air sampling and monitoring on. Pulse ox on. NIBP on. 05:15 Patient arrived in ED. es 05:15 Juan Tinajero MD is Private Physician. es 05:15 Missed attempt(s): 20 gauge in left antecubital area. Bleeding controlled, band aid aa1 applied, catheter tip intact. 05:16 Missed attempt(s): 20 gauge in right antecubital area. by rocio Randall. Bleeding aa1 controlled, band aid applied, catheter tip intact. 05:16 Oxygen administration via nasal cannula \T\ 2L/min. aa1 05:17 EKG done, by ED staff, reviewed by Emmanuel Del Cid MD. aa1 05:18 Inserted saline lock: 20 gauge in left forearm, using aseptic technique. ,using aseptic fc technique. per Brandy SHIELDS. 05:30 Missed attempt(s): 22 gauge in right forearm. by Loyda Lutz RN. Bleeding aa1 controlled, band aid applied, catheter tip intact. 05:40 Emmanuel Del Cid MD is Attending Physician. wa 05:40 Accessed ,peripheral vein via ultrasound, utilizing static ultrasound technique using aa1 20G Nexia IV catheter Good blood return. Flushes easily. by Loyda Lutz RN. 05:45 Triage completed. fc 05:58 XRAY Chest (1 view) Sent. fc 06:26 Juan Tinajero MD is Hospitalizing Provider. wa 06:44 No provider procedures requiring assistance completed. Patient admitted, IV remains in aa1 place. 08:09 Alaina Alexis is Primary Nurse. cc3 10:04 Repeat lab(s) drawn. by nm, sent to lab. jb1 Administered Medications: 05:23 Drug: Adenosine 6 mg {Note: per Ruby RN.} Route: IVP; Site: left forearm; fc 05:53 Follow up: Response: No adverse reaction; No change in condition fc 05:26 Drug: Adenosine 12 mg {Note: per Ruby RN.} Route: IVP; Site: left forearm; fc 05:53 Follow up: Response: No adverse reaction; No change in condition fc 05:28 Drug: Adenosine 12 mg {Note: per Ruby RN.} Route: IVP; Site: left forearm; fc 05:53 Follow up: Response: No adverse reaction; Other; Other - heart rate down fc 05:30 Drug: Lopressor 5 mg {Note: per Ruby SHIELDS.} Route: IVP; Site: left forearm; 05:53 Follow up: Response: No adverse reaction; Marked relief of symptoms fc 05:33 Drug: Lopressor 5 mg {Note: per Ruby RN.} Route: IVP; Site: left forearm; 05:54 Follow up: Response: No adverse reaction; Marked relief of symptoms fc 05:38 Drug: Lopressor (metoprolol TARTRATE) 50 mg Route: PO; fc 07:20 Follow up: Response: No adverse reaction cc3 05:40 Drug: Magnesium Sulfate 2 grams {Note: per Ruby SHIELDS.} Route: IVPB; Infused Over: 2 fc hrs; Site: left forearm; 06:30 Follow up: Response: No adverse reaction; Marked relief of symptoms; IV Status: fc Completed infusion; IV Intake: 50ml 06:22 Drug: Cardizem 20 mg Route: IVP; Site: right antecubital; jb4 07:15 Follow up: Response: No adverse reaction cc3 06:35 Drug: Cardizem 5 mg/hr Route: IV; Rate: calculated rate; Site: left forearm; aa1 06:42 Follow up: IV Status: Infusion continued upon admission aa1 Intake: 06:30 IV: 50ml; Total: 50ml. Outcome: 06:28 Decision to Hospitalize by Provider. tn 12:48 Patient left the ED. sv Signatures: Ever Mosquera jbCatalina Costello RN RN Ruby Cleveland RN RN aa1 Tricia Goyal Felicia, RN RN Keila Jackson RN RN hb Bryson, James, RN RN jb4 Emmanuel Del Cid MD MD wa Cordel, Charlene cc3 Corrections: (The following items were deleted from the chart) 05:59 05:15 Missed attempt(s): 20 gauge in right antecubital area. Bleeding controlled, band aa1 aid applied, catheter tip intact. aa1 08:13 07:15 Reassessment: Patient appears in no apparent distress at this time. Patient cc3 and/or family updated on plan of care and expected duration. Pain level reassessed. Patient is alert, oriented x 3, equal unlabored respirations, skin warm/dry/pink. received from wind turbine machinist with ongoing Diltiazem infusion at 5 mg/hr at the left antecubital area intravenous cannula, infusing well. Patient denies pain at this time. Patient states feeling better. Patient states symptoms have improved. cc3
--- NOTE | 2018-01-26 06:29 | EDPHYS ---
Physician Documentation [facility] Name: Jl Lara Age: 57 yrs Sex: Male : 1960 Arrival Date: 01/26/2018 Time: 05:15 Bed 4 Private MD: Juan Tinajero R ED Physician Emmanuel Del Cid HPI: 01/26 06:29 This 57 yrs old Black Male presents to ER via Wheelchair with complaints of wa Palpitations. 06:29 The patient presents with a history of irregular heart beat, heart racing. Context: The wa symptoms occur at rest, recently d/c'd from here for same. on eloquis and a beta-florentin.. Onset: The symptoms/episode began/occurred 4:30 Am this morning. Duration: The patient or guardian reports a single episode, that is still ongoing, and worsening. Modifying factors: The symptoms are aggravated by nothing. The symptoms are alleviated by nothing. Associated signs and symptoms: Pertinent positives: chest pain, SOB, dizziness. Severity of symptoms: At their worst the symptoms were moderate in the emergency department the symptoms are worse markedly. The patient has experienced a previous episode, The patient has experienced similar episodes in the past, recent d/c for same. The patient has been recently seen by a physician:. sent home with blood thinners to f/u with cardiology. Historical: - Allergies: 05:56 No Known Allergies; fc - Home Meds: 05:56 atorvastatin 10 mg oral tab 1 tab nightly [Active]; Eliquis 5 mg oral tab 1 tab 2 times fc per day [Active]; metoprolol tartrate 25 mg Oral tab 1 tab 2 times per day [Active]; - PMHx: 05:56 Hypertension; Atrial Fib; High Cholesterol; fc - Immunization history:: Last tetanus immunization: unknown. - Social history:: Smoking status: Patient uses tobacco products, smokes one pack cigarettes per day. - Ebola Screening: : Patient negative for fever greater than or equal to 101.5 degrees Fahrenheit, and additional compatible Ebola Virus Disease symptoms Patient denies exposure to infectious person Patient denies travel to an Ebola-affected area in the 21 days before illness onset. - Family history:: not pertinent. - Hospitalizations: : No recent hospitalization is reported. ROS: 06:41 Constitutional: Negative for fever, chills, and weight loss, Eyes: Negative for injury, wa pain, redness, and discharge, ENT: Negative for injury, pain, and discharge, Neck: Negative for injury, pain, and swelling, Abdomen/GI: Negative for abdominal pain, nausea, vomiting, diarrhea, and constipation, Back: Negative for injury and pain, : Negative for injury, bleeding, discharge, and swelling, MS/Extremity: Negative for injury and deformity, Skin: Negative for injury, rash, and discoloration, Neuro: Negative for headache, weakness, numbness, tingling, and seizure, Psych: Negative for depression, anxiety, suicide ideation, homicidal ideation, and hallucinations. 06:41 Cardiovascular: Positive for chest pain, palpitations, Negative for orthopnea, paroxysmal nocturnal dyspnea. 06:41 Respiratory: Positive for shortness of breath, at rest. Negative for cough, hemoptysis. Exam: 06:42 Constitutional: This is a well developed, well nourished patient who is awake, alert, wa and in no acute distress. Head/Face: Normocephalic, atraumatic. Eyes: Pupils equal round and reactive to light, extra-ocular motions intact. Lids and lashes normal. Conjunctiva and sclera are non-icteric and not injected. Cornea within normal limits. Periorbital areas with no swelling, redness, or edema. ENT: Nares patent. No nasal discharge, no septal abnormalities noted. Tympanic membranes are normal and external auditory canals are clear. Oropharynx with no redness, swelling, or masses, exudates, or evidence of obstruction, uvula midline. Mucous membranes moist. Neck: Trachea midline, no thyromegaly or masses palpated, and no cervical lymphadenopathy. Supple, full range of motion without nuchal rigidity, or vertebral point tenderness. No Meningismus. Chest/axilla: Normal chest wall appearance and motion. Nontender with no deformity. No lesions are appreciated. Abdomen/GI: Soft, non-tender, with normal bowel sounds. No distension or tympany. No guarding or rebound. No evidence of tenderness throughout. Back: No spinal tenderness. No costovertebral tenderness. Full range of motion. Skin: Warm, dry with normal turgor. Normal color with no rashes, no lesions, and no evidence of cellulitis. MS/ Extremity: Pulses equal, no cyanosis. Neurovascular intact. Full, normal range of motion. Neuro: Awake and alert, GCS 15, oriented to person, place, time, and situation. Cranial nerves II-XII grossly intact. Motor strength 5/5 in all extremities. Sensory grossly intact. Cerebellar exam normal. Normal gait. Psych: Awake, alert, with orientation to person, place and time. Behavior, mood, and affect are within normal limits. 06:42 Cardiovascular: Rate: tachycardic, Rhythm: irregular, Pulses: no pulse deficits are appreciated, Heart sounds: normal, Edema: is not appreciated, JVD: is not appreciated. 06:42 Respiratory: the patient does not display signs of respiratory distress, Respirations: normal, Breath sounds: are clear throughout, Respiratory rate: normal Vital Signs: 05:10 BP 124 / 107; Pulse 273; Resp 24; Temp 98.1(O); Pulse Ox 100% on R/A; Weight 108.86 kg fc (R); Height 5 ft. 7 in. (170.18 cm) (R); Pain 10/10; 05:32 BP 130 / 89; Pulse 164; Resp 24; Pulse Ox 98% on R/A; fc 05:38 BP 111 / 78; Pulse 126; Resp 20; Pulse Ox 96% on R/A; fc 05:54 BP 111 / 78; Pulse 135; Resp 20; Pulse Ox 100% on R/A; Pain 0/10; aa1 06:45 BP 120 / 93; Pulse 137; Resp 18; Pulse Ox 100% on R/A; Pain 0/10; aa1 07:35 BP 133 / 85; Pulse 136; Resp 15; Pulse Ox 98% on R/A; sv 08:30 BP 113 / 93; Pulse 135; Resp 24; Pulse Ox 98% on R/A; Pain 0/10; hb 09:15 BP 115 / 87; Pulse 136; Resp 22 S; Pulse Ox 99% on 2 lpm NC; Pain 0/10; cc3 05:10 Body Mass Index 37.59 (108.86 kg, 170.18 cm) MDM: 05:40 Patient medically screened. wa 06:43 Differential diagnosis: arrythmia, dehydration, stress disorder. Data reviewed: vital wa signs, nurses notes, lab test result(s), EKG, radiologic studies. 06:45 Test interpretation: by ED physician or midlevel provider: labs noted for elevated Cr wa 1.6 and BNP of 781. 06:45 Test interpretation: by ED physician or midlevel provider: CXR: no acute process. ny Response to treatment: the patient's symptoms have mildly improved after treatment, HR now in the 130's on a drip with cardizem. admit to Dr. Tinajero. cardiology consult. Physician consultation: Juan Tinajero MD. Admission orders: after a detailed discussion of the patient's condition and case, the admit orders are written by tx. 01/26 05:41 Order name: Basic Metabolic Panel; Complete Time: 06:44 ny 01/26 05:41 Order name: CBC with Diff; Complete Time: 06:44 ny 01/26 05:41 Order name: LFT's; Complete Time: 06:44 ny 01/26 05:41 Order name: Magnesium; Complete Time: 06:45 ny 01/26 05:41 Order name: NT PRO-BNP; Complete Time: 06:44 ny 01/26 05:41 Order name: PT-INR; Complete Time: 06:44 ny 01/26 05:41 Order name: Troponin (emerg Dept Use Only); Complete Time: 06:45 ny 01/26 05:41 Order name: XRAY Chest (1 view) ny 01/26 06:12 Order name: Urine Dipstick--Ancillary (enter results) [facility] 01/26 09:13 Order name: RAD [facility] 01/26 10:36 Order name: Troponin I [facility] 01/26 05:41 Order name: EKG; Complete Time: 05:41 ny 01/26 05:41 Order name: Cardiac monitoring; Complete Time: 05:49 ny 01/26 05:41 Order name: EKG - Nurse/Tech; Complete Time: 05:49 ny 01/26 05:41 Order name: IV Saline Lock; Complete Time: 05:49 ny 01/26 05:41 Order name: Labs collected and sent; Complete Time: 05:51 ny 01/26 05:41 Order name: O2 Per Protocol; Complete Time: 05:49 ny 01/26 05:41 Order name: O2 Sat Monitoring; Complete Time: 05:49 ny 01/26 05:41 Order name: Urine Dipstick-Ancillary (obtain specimen); Complete Time: 06:42 ny 01/26 06:44 Order name: EKG; Complete Time: 06:45 01/26 06:44 Order name: EKG - Nurse/Tech; Complete Time: 06:45 eb Administered Medications: 05:23 Drug: Adenosine 6 mg {Note: per Ruby RN.} Route: IVP; Site: left forearm; fc 05:53 Follow up: Response: No adverse reaction; No change in condition fc 05:26 Drug: Adenosine 12 mg {Note: per Ruby RN.} Route: IVP; Site: left forearm; fc 05:53 Follow up: Response: No adverse reaction; No change in condition fc 05:28 Drug: Adenosine 12 mg {Note: per Ruby RN.} Route: IVP; Site: left forearm; fc 05:53 Follow up: Response: No adverse reaction; Other; Other - heart rate down fc 05:30 Drug: Lopressor 5 mg {Note: per Ruby RN.} Route: IVP; Site: left forearm; fc 05:53 Follow up: Response: No adverse reaction; Marked relief of symptoms fc 05:33 Drug: Lopressor 5 mg {Note: per Ruby RN.} Route: IVP; Site: left forearm; fc 05:54 Follow up: Response: No adverse reaction; Marked relief of symptoms fc 05:38 Drug: Lopressor (metoprolol TARTRATE) 50 mg Route: PO; fc 07:20 Follow up: Response: No adverse reaction cc3 05:40 Drug: Magnesium Sulfate 2 grams {Note: per Ruby RN.} Route: IVPB; Infused Over: 2 fc hrs; Site: left forearm; 06:30 Follow up: Response: No adverse reaction; Marked relief of symptoms; IV Status: fc Completed infusion; IV Intake: 50ml 06:22 Drug: Cardizem 20 mg Route: IVP; Site: right antecubital; jb4 07:15 Follow up: Response: No adverse reaction cc3 06:35 Drug: Cardizem 5 mg/hr Route: IV; Rate: calculated rate; Site: left forearm; aa1 06:42 Follow up: IV Status: Infusion continued upon admission aa1 Disposition: 01/26/18 06:28 Hospitalization ordered by Juan Tinajero for Inpatient Admission. Preliminary diagnosis are Palpitations, Chest Pain, shortness of breath, A fib RVR. - Bed requested for Intensive Care Unit. - Status is Inpatient Admission. sv - Condition is Fair. - Problem is new. - Symptoms have improved. UTI on Admission? No Critical care time excluding procedures: 06:26 Critical care time: Bedside Care: 25 minutes, Consultation: 10 minutes, Family wa Intervention: 10 minutes. Total time: 45 minutes Signatures: Dispatcher [employer] Mylene Aviles RN RN dm5 Catalina Guzman RN RN sv Anna Low RN CORNELIUS Ruby Cleveland RN RN aa1 Adele Tijerina RN RN Emily Smith RN RN Clinton Jackson RN RN jb4 Emmanuel Del Cid MD MD wa Botello, Elizabeth eb Cordel, Charlene cc3 Corrections: (The following items were deleted from the chart) 06:34 06:28 Hospitalization Ordered by Juan Tinajero MD for Inpatient Admission. Preliminary diagnosis is Palpitations; Chest Pain; shortness of breath; A fib RVR. Bed requested for Telemetry/MedSurg (Inpatient). Status is Inpatient Admission. Condition is Fair. Problem is new. Symptoms have improved. UTI on Admission? No. wa 07:08 06:34 01/26/2018 06:28 Hospitalization Ordered by Juan Tinajero MD for Inpatient eb Admission. Preliminary diagnosis is Palpitations; Chest Pain; shortness of breath; A fib RVR. Bed requested for Telemetry/MedSurg (Inpatient). Status is Inpatient Admission. Condition is Fair. Problem is new. Symptoms have improved. UTI on Admission? No. mw 09:51 07:08 01/26/2018 06:28 Hospitalization Ordered by Juan Tinajero MD for Inpatient eb Admission. Preliminary diagnosis is Palpitations; Chest Pain; shortness of breath; A fib RVR. Bed requested for Intensive Care Unit. Status is Inpatient Admission. Condition is Fair. Problem is new. Symptoms have improved. UTI on Admission? No. eb 10:19 09:51 01/26/2018 06:28 Hospitalization Ordered by Juan Tinajero MD for Inpatient ss Admission. Preliminary diagnosis is Palpitations; Chest Pain; shortness of breath; A fib RVR. Bed requested for [facility]. Status is Inpatient Admission. Condition is Fair. Problem is new. Symptoms have improved. UTI on Admission? No. eb 11:22 10:19 01/26/2018 06:28 Hospitalization Ordered by Juan Tinajero MD for Inpatient dm5 Admission. Preliminary diagnosis is Palpitations; Chest Pain; shortness of breath; A fib RVR. Bed requested for [facility] ER HOLD. Status is Inpatient Admission. Condition is Fair. Problem is new. Symptoms have improved. UTI on Admission? No. ss 12:48 11:22 01/26/2018 06:28 Hospitalization Ordered by Juan Tinajero MD for Inpatient sv Admission. Preliminary diagnosis is Palpitations; Chest Pain; shortness of breath; A fib RVR. Bed requested for Intensive Care Unit. Status is Inpatient Admission. Condition is Fair. Problem is new. Symptoms have improved. UTI on Admission? No. dm5
[2018-01-26 06:35] LABS: Albumin 3.6 g/dL (3.4-5.0); Bilirubin Direct 0.1 mg/dL (0-0.2); Bilirubin Total 0.4 mg/dL (0.2-1.0); Magnesium 2.2 mg/dL (1.8-2.4); Protein, Total 8.2 g/dL (6.4-8.2)
[2018-01-26 07:15] LABS: Urine Blood TRACE (NEG); Urine Glucose NEGATIVE (NEG); Urine Protein 2+ (NEG)
[2018-01-26] MEDS ORDERED: ONDANSETRON 4 MG/2 ML VIAL IV PRN (07:15)
[2018-01-26] MEDS: ASPIRIN EC 81 MG TAB PO SCH (09:00)
[2018-01-26] MEDS: APIXABAN 5 MG TABLET PO SCH ×2 (09:00→20:53)
--- NOTE | 2018-01-26 09:12 | RAD REPORT ---
EXAM DESCRIPTION: RAD - Chest Single View - 01/26/2018 7:10 am CLINICAL HISTORY: SOB Chest pain. COMPARISON: Chest Single View dated 01/16/2018 FINDINGS: Portable technique limits examination quality. The lungs are grossly clear. The heart is upper limit of normal in size. No displaced fractures. IMPRESSION: No acute intrathoracic process suspected.
[2018-01-26] MEDS ORDERED: ASPIRIN EC 81 MG TAB PO ONE (10:29)
[2018-01-26] MEDS: SOTALOL HCL 80 MG TAB PO SCH ×2 (14:20→15:56)
[2018-01-26] MEDS: ACETAMINOPHEN 500 MG TAB PO PRN (17:27)
[2018-01-26] MEDS ORDERED: METOPROLOL TAR 25 MG TAB PO SCH (18:00)
[2018-01-26] MEDS: ATORVASTATIN 10 MG TAB PO SCH (20:53)
[2018-01-27] MEDS: ACETAMINOPHEN 500 MG TAB PO PRN
--- NOTE | 2018-01-27 02:29 | HP ---
Date of Admission: 01/26/2018 Chief Complaint: Atrial fibrillation, syncope. History Of Present Illness: This patient started having dizziness, syncope, and chest pain. He also had nausea and diaphoresis. At this point, he was brought to the emergency room. The patient is kn own to have chronic atrial fibrillation. Currently, he is on beta florentin, metoprolol as well as Joyce ángela. The patient was in the hospital last week. The patient is due to be followed by [facility] rdiology. The patient denied any history of seizures. No history of fever, chills, or rigors. Past Medical History: Positive for atrial fibrillation, hyperlipidemia, hypertension. Family History: Noncontributory. Personal History: The patient currently does not drink any alcohol. Home Medicines: Lipitor, Eliquis, metoprolol. Review of Systems: No history of fever, chills, or rigors. Physical Examination: General: Revealed a 57-year-old black male, fully alert and oriented. Vital Signs: Blood pressure 140/90, heart rate 116. HEENT: Otherwise negative. Neck: Supple. JVD negative. Chest: Clear. Heart: Irregular. Tachycardia noted. Abdomen: Soft. Extremities: No edema. Laboratory: EKG: Atrial fibrillation with rapid ventricular response. White count 11,000. Chem pr ofile: Creatinine of 1.6, BUN normal, alkaline phosphatase 162. Troponin 0.07. BNP 731. Echocardi ogram done during the last visit showed mild global hypokinesia. Assessment: 1.Atrial fibrillation with rapid ventricular response. 2.Chronic atrial fibrillation. 3.Hypertension. 4.Hyperlipidemia. 5.Left ventricular dysfunction as documented on echocardiogram during the last visit. Plan: The patient currently is on Cardizem drip. The patient is being seen by Cardiology Service. The patient is started on Lipitor and Eliquis, which he was at home. Further management of the patie nt depends on suggestions from Cardiology Service. The patient currently fully stable. REGAN/FANTA Voice ID: [id number]
[2018-01-27] MEDS ORDERED: MORPHINE 2 MG/ML SYR IV PRN ×2 (02:32→03:00)
[2018-01-27] MEDS ORDERED: MORPHINE 2 MG/ML SYR IV ONE (02:55)
[2018-01-27] MEDS: SOTALOL HCL 80 MG TAB PO SCH ×2 (05:33→14:03)
--- NOTE | 2018-01-27 06:09 | EKG ---
Test Date: 2018-01-26 Test Time: 05:33:28 Insurance Examiner: MEASUREMENT RESULTS: Intervals: Rate: 143 ID: [id number] QRSD: 74 QT: 166 QTc: 256 [place]: P: 38 ID: [id number] QRS: 14 T: 261 INTERPRETIVE STATEMENTS: atrial flutter wit 2;1 Biatrial enlargement Left ventricular hypertrophy with repolarization abnormality Abnormal ECG Compared to ECG 01/26/2018 05:13:33 Atrial premature complex(es) now present First degree AV block now present Atrial abnormality now present Left ventricular hypertrophy now present Early repolarization now present Supraventricular tachycardia no longer present ST (T wave) deviation no longer present Electronically Signed On 01-27-18 06:07:21 CDT by Ethan Herrera
--- NOTE | 2018-01-27 06:09 | EKG ---
Test Date: 2018-01-26 Test Time: 05:13:33 Fitness Assistant: MEASUREMENT RESULTS: Intervals: Rate: 271 DC: QRSD: 66 QT: 148 QTc: 314 [place]: P: DC: QRS: 35 T: 252 INTERPRETIVE STATEMENTS: Supraventricular tachycardia Marked ST abnormality, possible inferolateral subendocardial injury Abnormal ECG Compared to ECG 01/17/2018 00:10:18 ST (T wave) deviation now present Atrial flutter no longer present Left ventricular hypertrophy no longer present Early repolarization no longer present Myocardial infarct finding no longer present Electronically Signed On 01-27-18 06:07:27 CDT by Ethan Herrera
[2018-01-27] MEDS: METOPROLOL TARTRATE 5 MG/5 ML INJ IV SCH ×3 (07:02→07:18)
[2018-01-27] MEDS: ASPIRIN EC 81 MG TAB PO SCH (09:30)
[2018-01-27] MEDS: APIXABAN 5 MG TABLET PO SCH ×2 (09:30→20:31)
[2018-01-27] MEDS: ATORVASTATIN 10 MG TAB PO SCH (20:31)
[2018-01-27] MEDS ORDERED: SOTALOL HCL 80 MG TAB PO ONE (20:59)
[2018-01-27] MEDS ORDERED: LORazepam 2 MG/ML VIAL IV ONE (22:27)
[2018-01-28] MEDS: SOTALOL HCL 80 MG TAB PO SCH ×2 (03:56→13:48)
[2018-01-28 04:15] VITALS: BMI 37.9
[2018-01-28 05:43] LABS: BUN Blood Urea Nitrogen 17 mg/dL (7-18); Bicarbonate 27 mmol/L (21-32); Glucose Level 104 mg/dL (74-106); Magnesium 2.1 mg/dL (1.8-2.4); Potassium 4.1 mmol/L (3.5-5.1); Sodium Level 142 mmol/L (136-145)
[2018-01-28] MEDS ORDERED: FLUMAZENIL 0.1 MG/ML (5 mL VIAL) IV ONE (07:43)
[2018-01-28] MEDS ORDERED: MIDAZOLAM HCL 2 MG/2 ML INJ ONE ×3 (07:43→08:24)
[2018-01-28] MEDS ORDERED: NA CHLORIDE 0.9% 1,000 ML ONE (07:44)
[2018-01-28] MEDS ORDERED: NA CHLORIDE 0.9% 1,000 ML IV SCH (08:00)
[2018-01-28] MEDS ORDERED: MIDAZOLAM HCL 2 MG/2 ML INJ IV ONE ×5 (08:00→10:17)
--- NOTE | 2018-01-28 11:10 | P.DS ---
Admission Date: 01/26/18 Discharge Date: 01/28/18 Disposition: ROUTINE DISCHARGE Discharge Condition: FAIR Brief History of Present Illness: Patient is 57 years of age admitted with atrial fibrillation chest pain syncopal attack Hospital Course: Patient was admitted to the hospital and was cardioverted the on a Cardizem drip he was then cardioverted and is currently in normal sinus rhythm be a blockers discontinued started on Betapace continue with anticoagulation Vital Signs/Physical Exam: Temp Pulse Resp BP Pulse Ox 98.1 F 129 H 23 H 138/94 H 98 01/28/18 04:00 01/28/18 06:00 01/28/18 06:00 01/28/18 06:00 01/28/18 06:00 Laboratory Data at Discharge: WBC 11.0 K/uL (4.3-10.9) H D 01/26/18 05:40 Hgb 16.0 g/dL (13.6-17.9) 01/26/18 05:40 Hct 46.8 % (39.6-49.0) 01/26/18 05:40 Plt Count 282 K/uL (152-406) 01/26/18 05:40 PT 15.0 SECONDS (9.5-12.5) H 01/26/18 05:40 INR 1.27 01/26/18 05:40 Sodium 142 mmol/L (136-145) 01/28/18 05:02 Potassium 4.1 mmol/L (3.5-5.1) 01/28/18 05:02 BUN 17 mg/dL (7-18) 01/28/18 05:02 Creatinine 1.00 mg/dL (0.55-1.3) 01/28/18 05:02 Glucose 104 mg/dL (74-106) 01/28/18 05:02 Magnesium 2.1 mg/dL (1.8-2.4) 01/28/18 05:02 Total Bilirubin 0.4 mg/dL (0.2-1.0) 01/26/18 05:40 AST 38 U/L (15-37) H 01/26/18 05:40 ALT 41 U/L (12-78) 01/26/18 05:40 Alkaline Phosphatase 162 U/L (45-117) H 01/26/18 05:40 Troponin I 0.04 ng/mL (0.0-0.045) 01/27/18 09:19 Home Medications: Apixaban [Eliquis] 5 mg PO BID #60 tablet 01/17/18 Atorvastatin Calcium [Lipitor*] 10 mg PO BEDTIME #30 tab 01/17/18 Metoprolol Tartrate [Lopressor*] 25 mg PO BID 6AM 6PM #60 tab 01/17/18 Diet: Regular Activity: Ad robina
--- NOTE | 2018-01-28 11:12 | CON ---
Date of Consultation: 01/26/2018 Reason For Consultation: Recurrent atrial flutter. History Of Present Illness: Mr. Lara was just in the hospital recently. He has a history of atrial fibrillation dating back to 3 years ago. Was placed on medication at that time and he just stopped t aking his medicine that was in August 2015. At that time, he had a normal echo and normal stress test . He came back about 2 weeks ago with an episode of atrial fibrillation that resolved after one dose of beta-florentin IV. He was kept on beta-blockers and placed on Eliquis and had an echocardiogram th at showed an ejection fraction of 50%. He came back to the emergency room a few days later with recu rrent atrial flutter and was admitted for further evaluation and treatment. He does have some slight chest discomfort with his atrial flutter, but no PND, orthopnea, pedal edema, or syncope. He stated that he took his beta-florentin and Eliquis like he was supposed to. He is also on Lipitor for dyslip idemia. Past Medical History: Includes atrial fibrillation, hypertension, dyslipidemia. Allergies: NONE. Social History: Negative. Family History: Negative. Review of Systems: Negative. Medications: At home include Lipitor, Eliquis, and beta-blockers. Physical Examination: Vital Signs: Stable. He was in atrial flutter. HEENT: Negative. Neck: Supple with no bruit. Chest: Clear. Cardiac: Revealed atrial flutter. No murmurs, gallops, or rubs. Abdomen: Benign. Extremities: Revealed no clubbing, cyanosis, or edema. Diagnostic Data: Chest x-ray was negative. EKG showed atrial flutter. Troponin was 0.05. BNP was 731. Creatinine is 1.6. Impression And Plan: Recurrent atrial fibrillation. We will give the patient some IV beta-blockers. I am going to put him on Betapace 80 b.i.d. We will continue his Eliquis. If he does not convert with Betapace, I will attempt cardioversion. No need to repeat any cardiac workup at this point. So metime down the road, we can probably repeat the Lexiscan. I think his elevation of BNP and troponin are secondary to the atrial flutter. His other problems include hypertension that is well controlle d, dyslipidemia well controlled, and moderate stage 2 chronic renal insufficiency. NB/MODL Voice ID: [id number] Report ID: [id number]
[2018-01-28] MEDS: ASPIRIN EC 81 MG TAB PO SCH (11:28)
[2018-01-28] MEDS: APIXABAN 5 MG TABLET PO SCH (11:29)
--- NOTE | 2018-01-28 11:40 | PN ---
Date of Progress Note: 01/27/2018 Mr. Lara was readmitted on 01/26/2018 for recurrent atrial fibrillation. He is now on Betapace and E liquis. Heart rate is better controlled in the 130s, but he remained in atrial flutter. He remained symptomatic with some shortness of breath, palpitation, and slight chest pain. I will give him micky tional IV beta-florentin doses today of 15 mg IV. We will continue the Betapace at 80 b.i.d. If he re kelly in atrial fibrillation or flutter by 01/28/2018, we will plan a cardioversion. AAKASH/FANTA Voice ID: [id number] Report ID: [id number]
[2018-01-28 12:51] VITALS: O2SAT 98
[2018-01-28] MEDS ORDERED: ADENOSINE 6 MG/ 2ML VIAL IV ONE (13:54)
[2018-01-28 14:45] VITALS: BP 137/79; TEMP 98.4
--- NOTE | 2018-01-28 19:17 | OP ---
Date of Procedure: 01/28/2018 Surgeon: Ethan Herrera MD Procedure: Direct current cardioversion. Indication: Atrial flutter. History Of Present Illness: Mr. Lara had been in the hospital for about 48 hours after recurrent atr ial flutter at a rapid rate, unresponsive to IV beta-blockers, and p.o. beta-blockers. He had been t aking Eliquis at home. Had a negative Cardiolite in 2016. Echocardiogram showed an ejection fractio n of 50%. Has a history of dyslipidemia. He remained symptomatic with some shortness of breath, aty pical chest pain, rapid atrial flutter despite 4 dosages of Betapace 80 mg 1 p.o. b.i.d. QT was not prolonged. He was set up today for a cardioversion, was n.p.o. Received a total of 13 mg of Versed for IV sedation. He received 1 shock of 100 joules, but converted him to sinus bradycardia. The pat ient tolerated the procedure well. There were no complications. Total conscious sedation was 30 min utes. Final Diagnosis: Atrial flutter status post successful cardioversion. Plan: Plan is for the patient to go home whenever he wakes up. He will be going home on aspirin, so talol 80 b.i.d., Eliquis, and I believe he takes his statin at home, and I will see him in the office in 2 days. AAKASH/FANTA Voice ID: [id number] Report ID: [id number]
--- NOTE | 2018-01-30 07:11 | EKG ---
Test Date: 2018-01-28 Test Time: 11:03:11 Mold Burner: CORNELIUS Vo MEASUREMENT RESULTS: Intervals: Rate: 65 [place]: 148 QRSD: 92 QT: 480 QTc: 499 [place]: P: 77 KS: 148 QRS: 39 T: 20 INTERPRETIVE STATEMENTS: Normal sinus rhythm Right atrial enlargement Minimal voltage criteria for LVH, may be normal variant Prolonged QT Abnormal ECG Compared to ECG 01/26/2018 05:33:28 Prolonged QT interval now present Atrial flutter no longer present Early repolarization no longer present Electronically Signed On 01-30-18 07:09:38 CDT by Ethan Herrera
--- NOTE | 2018-01-30 12:23 | EKG ---
Test Date: 2018-01-28 Test Time: 10:58:07 Traffic Officer: CORNELIUS Vo MEASUREMENT RESULTS: Intervals: Rate: 67 ME: 148 QRSD: 92 QT: 478 QTc: 505 [place]: P: 74 ME: 148 QRS: 49 T: 22 INTERPRETIVE STATEMENTS: Normal sinus rhythm Right atrial enlargement RSR' or QR pattern in V1 suggests right ventricular conduction delay Minimal voltage criteria for LVH, may be normal variant Prolonged QT Abnormal ECG Compared to ECG 01/27/2018 03:09:25 Atrial abnormality now present RSR' in V1 or V2 now present Prolonged QT interval now present Atrial flutter no longer present Early repolarization no longer present Electronically Signed On 01-30-18 12:19:26 CDT by Ethan Herrera
--- NOTE | 2018-01-30 12:23 | EKG ---
Test Date: 2018-01-27 Test Time: 03:09:25 Concert Promoter: RT MEASUREMENT RESULTS: Intervals: Rate: 133 [place]: QRSD: 82 QT: 344 QTc: 511 [place]: P: 267 [place]: QRS: 17 T: -50 INTERPRETIVE STATEMENTS: Atrial flutter with 2:1 AV conduction Left ventricular hypertrophy with repolarization abnormality Abnormal ECG Electronically Signed On 01-30-18 12:19:33 CDT by Ethan Herrera
== END 2018-01-28 13:55 | disposition home or self-care (01) | DRG 310 ==
LOC: ER 05:12 → ERHOLD 06:59 → 3RD-ICU 12:34
PROVIDERS: ADMIT Internal Medicine Sleep Medicine; ATTEND Internal Medicine
PROC: 5A2204Z Restoration of Cardiac Rhythm, Single (ICD-10-PCS; principal; 2018-01-28)
DX: I48.92 Unspecified atrial flutter (principal); E78.5 Hyperlipidemia, unspecified; I10 Essential (primary) hypertension; N18.2 Chronic kidney disease, stage 2 (mild); F17.210 Nicotine dependence, cigarettes, uncomplicated; I48.2 Chronic atrial fibrillation; Z79.01 Long term (current) use of anticoagulants
CPT/HCPCS: 36415; 71045; 80048; 80076; 81003; 83735; 83880; 84484; 85025; 85610; 93005; 99285; J0153; J2250; J2270; J2405; J3475; J7030

== ENCOUNTER 2018-05-16 07:17 | Inpatient (IN) | payer BC ==
[2018-05-16 07:36] LABS: Absolute Lymphocytes (CBC) 3.1 K/uL (0.7-4.9); Absolute Monocytes 0.9 K/uL (0.1-1.3); Absolute Neutrophil 5.6 K/uL (1.8-8.0); Basophils % 0.6 % (0-1.3); Eosinophils % 2.9 % (0-4.4); Lymphocytes % 31.4 % (15.3-44.8); MPV 10.9 fL (7.6-11.3); Monocytes % 8.8 % (3.3-12.3); RBC Red Blood Cell Count 5.15 M/uL (4.33-5.43)
[2018-05-16 08:04] LABS: Protime INR 1.19
[2018-05-16 08:26] LABS: Albumin 3.2 g/dL (3.4-5.0); Bilirubin Direct 0.1 mg/dL (0-0.2); Bilirubin Total 0.4 mg/dL (0.2-1.0); Magnesium 2.1 mg/dL (1.8-2.4); Potassium 3.3 mmol/L (3.5-5.1); Protein, Total 7.2 g/dL (6.4-8.2); Troponin (Emerg Dept Use Only) 0.03 ng/mL (0.0-0.045)
--- NOTE | 2018-05-16 09:12 | ER ---
Nurse's Notes [facility] Name: Jl Lara Age: 58 yrs Sex: Male : 1960 Arrival Date: 05/16/2018 Time: 07:00 Bed 4 Private MD: Diagnosis: SVT, SOB Presentation: 05/16 07:00 Presenting complaint: EMS states: CP that started this morning, also noted palpitations sg and shortness of breath, reports has had a history of SVT that was corrected with medications, cant recall how long ago the last episode was. Transition of care: patient was not received from another setting of care. Onset of symptoms was May 16, 2018. Risk Assessment: Do you want to hurt yourself or someone else? Patient reports no desire to harm self or others. Initial Sepsis Screen: Does the patient meet any 2 criteria? RR > 20 per min. HR > 90 bpm. Does the patient have a suspected source of infection? No. Patient's initial sepsis screen is negative. Care prior to arrival: Medication(s) given: Adenosine, 6 mg, x 2, IV initiated. 22 GA, in the right wrist, IV d/c'd COMBINER OPERATOR by patient. Care prior to arrival: Medication(s) given: Adenosine, 12 mg, x 1, shocked administered COMBINER OPERATOR 200 Jouls per EMS. 07:00 Method Of Arrival: EMS: [facility] sg 07:00 Acuity: WILMA 1 sg Historical: - Allergies: 07:08 No Known Allergies; sg - Home Meds: 07:05 atorvastatin 10 mg Oral tab 1 tab nightly [Active]; Eliquis 5 mg Oral tab 1 tab 2 times sg per day [Active]; metoprolol tartrate 25 mg Oral tab 1 tab 2 times per day [Active]; 07:30 sotalol 80 mg Oral tab 1 tab 2 times per day [Active]; atorvastatin 10 mg oral tab 1 sg tab once daily [Active]; - PMHx: 07:05 Atrial Fib; High Cholesterol; Hypertension; sg - Immunization history:: Adult Immunizations up to date. - Social history:: Smoking status: unknown. - Ebola Screening: : Patient negative for fever greater than or equal to 101.5 degrees Fahrenheit, and additional compatible Ebola Virus Disease symptoms Patient denies exposure to infectious person Patient denies travel to an Ebola-affected area in the 21 days before illness onset No symptoms or risks identified at this time. Screenin:25 Abuse screen: Denies threats or abuse. Denies injuries from another. Nutritional sg screening: No deficits noted. Tuberculosis screening: No symptoms or risk factors identified. Fall Risk None identified. Assessment: 06:58 General: Appears distressed, well groomed, well developed, well nourished, Behavior is sg agitated, anxious, restless. Pain: Complains of pain in chest Pain currently is 10 out of 10 on a pain scale. Quality of pain is described as sharp, stabbing. Neuro: Level of Consciousness is awake, alert, obeys commands, Oriented to person, place, time, situation, Speech is normal, Facial symmetry appears normal. Cardiovascular: Chest pain is described as severe, quality is sharp. Respiratory: Airway is patent Respiratory effort is labored, Respiratory pattern is symmetrical, tachypnea. GI: Abdomen is round non-distended. : No deficits noted. EENT: No deficits noted. Derm: Skin is intact, is healthy with good turgor, Skin is diaphoretic, Skin is normal, Skin temperature is cold. Musculoskeletal: No deficits noted. 07:24 Reassessment: Patient appears in no apparent distress at this time. pt resp are sg becoming increasingly labored, resp rate about 40 bpm, notified, orders received for RSI kit and solumedrol 125 mg IVP, pt family at bedside at this time. 07:35 Reassessment: ordered to monitor pt resp status, hold on RSI at this time, RT Ekta and sg Maryann remain at bedside. 07:37 Reassessment: Patient appears in no apparent distress at this time. pt spouse/family sg removed jewelry and belongings at this time, pt pants and socks and shoes remain on pt at this time, pt t-shirt cut COMBINER OPERATOR in EMS. 07:39 Reassessment: Patient appears in no apparent distress at this time. pt spouse/family sg removed wallet and other belongings, pt family reports she will be going home now and will come back later today. 07:55 Reassessment: Patient is alert, oriented x 3, equal unlabored respirations, skin sg warm/dry/pink. Xray at bedside. 07:59 Reassessment: Patient appears in no apparent distress at this time. pt reports feeling sg better, pt states he was up really late last night until about 0400 watching TV, reports he would like to take a nap, lights dimmed, door closed, curtain remains opened at this time for visualization, bed in low and locked position, SRX2, call light within reach, pt remains on monitors at this time, will continue to monitor. 08:50 Reassessment: Patient appears in no apparent distress at this time. Patient is alert, sg oriented x 3, equal unlabored respirations, skin warm/dry/pink. awaiting admission orders at this time, pt updated on the need for admit, pt stated understanding, will continue to monitor Patient states feeling better. 09:51 Reassessment: Patient appears in no apparent distress at this time. Patient is alert, sg oriented x 3, equal unlabored respirations, skin warm/dry/pink. Cardiovascular: Heart tones S1 S2 present Capillary refill is brisk in bilateral fingers Patient's skin is warm and dry. Pulses are palpable in right radial artery and left radial artery. Respiratory: Airway is patent Respiratory effort is even, unlabored, Respiratory pattern is symmetrical, tachypnea resp rate of 24 bpm Breath sounds are clear. Derm: Skin is intact, is healthy with good turgor, Skin is dry, Skin is normal, Skin temperature is warm. 10:48 Reassessment: Patient appears in no apparent distress at this time. Patient and/or sg family updated on plan of care and expected duration. Pain level reassessed. Patient is alert, oriented x 3, equal unlabored respirations, skin warm/dry/pink. pt updated on ICU bed assignment number 3, attempt to give report but nurse unavailable at this time, awaiting a call back, pt stated understanding, will continue to monitor. Vital Signs: 06:58 Pulse 186 MON; Resp 26; Pulse Ox 99% on R/A; sg 06:58 BP 187 / 118; sg 07:10 BP 160 / 115; sg 07:27 BP 108 / 80; Pulse 125 MON; Resp 36 S; Pulse Ox 98% on 100% Nebulizer Mask; sg 07:40 BP 126 / 98; Pulse 124; Resp 18; Temp 97.0; Pulse Ox 100% on Nebulizer Mask; sg 07:56 BP 126 / 98; Pulse 125; Pulse Ox 100% on Nebulizer Mask; sg 08:05 BP 106 / 93; Pulse 122 MON; Resp 26 S; Pulse Ox 100% ; sg 08:41 BP 116 / 92; Pulse 125; Resp 26; Pulse Ox 98% ; sv 09:38 BP 130 / 99; Pulse 125; Resp 27; Pulse Ox 98% ; sv 10:04 BP 127 / 95; Pulse 124; Resp 24 S; Pulse Ox 99% on R/A; Pain 2/10; sg 10:30 BP 130 / 92; Pulse 122 MON; Resp 24 S; Pulse Ox 100% on R/A; sg 08:05 Sinus tachycardia sg 10:30 Sinus tachycardia sg Vitals: 06:58 Cardiac Rhythm Assessment SVT. sg 07:27 Cardiac Rhythm Assessment Sinus tach. sg 07:40 Cardiac Rhythm Assessment Sinus tach. sg 10:04 Cardiac Rhythm Assessment Sinus tach. sg 10:30 Cardiac Rhythm Assessment Sinus tach. sg ED Course: 06:58 Patient has correct armband on for positive identification. Bed in low position. Call sg light in reach. Side rails up X2. rotary driller on. Pulse ox on. NIBP on. 07:00 Patient arrived in ED. sg 07:03 Triage completed. sg 07:03 Arm band placed on. sg 07:06 Inserted saline lock: 20 gauge in right wrist, using aseptic technique. Oxygen sg administration via non-rebreather mask \T\ 15L/min. 07:11 Jewel Zafar, CORNELIUS is Primary Nurse. sg 07:13 Galileo Washburn MD is Attending Physician. kdr 07:15 No provider procedures requiring assistance completed. sg 07:18 Initial lab(s) drawn, by ED staff, sent to lab. Inserted saline lock: 20 gauge in left sg hand, using aseptic technique. 07:45 X-ray completed. Portable x-ray completed in exam room. Patient tolerated procedure jb2 well. 07:50 Lab(s) recollected, by me, sent to lab. sg 07:57 EKG done, by resident care technician. reviewed by Galileo Washburn MD Repeat EKG. at1 07:58 Door closed. Lights dimmed. Warm blanket given. Pillow given. Verbal reassurance given. sg Head of bed elevated. 08:43 XRAY Chest (1 view) In Process Unspecified. EDMS 09:09 César Calderon MD is Hospitalizing Provider. kdr 10:21 Juan Tinajero MD is Hospitalizing Provider. kdr 12:30 Patient admitted, IV remains in place. intact, No redness/swelling at site. sg Administered Medications: 07:05 Drug: Lopressor 5 mg Route: IVP; Site: right wrist; sg 07:06 Drug: Versed 2 mg Route: IVP; Site: right wrist; sg 07:50 Follow up: Response: No adverse reaction; Pain is decreased sg 07:08 Drug: fentaNYL (PF) 25 mcg Route: IVP; Site: right wrist; sg 07:50 Follow up: Response: No adverse reaction; Pain is decreased sg 07:18 Drug: Lopressor 5 mg Route: IVP; Site: left hand; sg 07:22 Drug: Xopenex (3) 1.25 mg Route: Inhalation; sg 07:26 Drug: SOLU-Medrol 125 mg Route: IVP; Site: left hand; sg Outcome: 09:11 Decision to Hospitalize by Provider. kdr 12:06 Admitted to ICU accompanied by nurse, accompanied by tech, via stretcher, room 3, on monitor, with chart, Report called to report given to Aurea SHIELDS 12:06 Condition: stable 12:06 Instructed on the need for admit, safety practices, Demonstrated understanding of instructions. 12:33 Patient left the ED. sg Signatures: Dispatcher [employer] EDMS Catalina Guzman RN CORNELIUS Jewel Zafar RN RN sg Rittger, Kevin, MD MD kdr Buechter, Jesse jb2 Kelin Gonzalez, rn medical surgical EKG Tat1 Corrections: (The following items were deleted from the chart) 07:57 07:56 EKG done, by resident care technician. reviewed by Galileo Washburn MD at1 at1
--- NOTE | 2018-05-16 09:12 | EDPHYS ---
Physician Documentation [facility] Name: Jl Lara Age: 58 yrs Sex: Male : 1960 Arrival Date: 05/16/2018 Time: 07:00 Bed 4 Private MD: ED Physician Galileo Washburn HPI: 05/16 07:15 This 58 yrs old Black Male presents to ER via EMS with complaints of Irregular Pulse. kdr 07:15 The patient presents with a history of irregular heart beat, heart racing. Context: The kdr symptoms occur at rest. Onset: The symptoms/episode began/occurred suddenly, at 05:00. Duration: The patient or guardian reports a single episode, that is still ongoing, but improving. Modifying factors: The symptoms are aggravated by nothing. The symptoms are alleviated by nothing. Associated signs and symptoms: Pertinent positives: anxiety, chest pain, SOB. Severity of symptoms: At their worst the symptoms were incapacitating just prior to arrival, in the emergency department the symptoms have improved moderately. The patient has experienced similar episodes in the past, a few times. The patient has been recently seen by a physician: The patient was cardioverted a few months ago. He was also seen by Dr. Herrera yesterday and told that ne may need an ablation. His heart rate has been persistently elevated for some time. Historical: - Allergies: 07:08 No Known Allergies; sg - Home Meds: 07:05 atorvastatin 10 mg Oral tab 1 tab nightly [Active]; Eliquis 5 mg Oral tab 1 tab 2 times sg per day [Active]; metoprolol tartrate 25 mg Oral tab 1 tab 2 times per day [Active]; 07:30 sotalol 80 mg Oral tab 1 tab 2 times per day [Active]; atorvastatin 10 mg oral tab 1 sg tab once daily [Active]; - PMHx: 07:05 Atrial Fib; High Cholesterol; Hypertension; sg - Immunization history:: Adult Immunizations up to date. - Social history:: Smoking status: unknown. - Ebola Screening: : Patient negative for fever greater than or equal to 101.5 degrees Fahrenheit, and additional compatible Ebola Virus Disease symptoms Patient denies exposure to infectious person Patient denies travel to an Ebola-affected area in the 21 days before illness onset No symptoms or risks identified at this time. ROS: 07:15 Constitutional: Negative for fever, chills, and weight loss, Eyes: Negative for injury, kdr pain, redness, and discharge, ENT: Negative for injury, pain, and discharge, Neck: Negative for injury, pain, and swelling, Abdomen/GI: Negative for abdominal pain, nausea, vomiting, diarrhea, and constipation, Back: Negative for injury and pain, : Negative for injury, bleeding, discharge, and swelling, MS/Extremity: Negative for injury and deformity, Skin: Negative for injury, rash, and discoloration, Neuro: Negative for headache, weakness, numbness, tingling, and seizure activity. Psych: Negative for depression, anxiety, suicide ideation, homicidal ideation, and hallucinations, Allergy/Immunology: Negative for hives, rash, and allergies, Endocrine: Negative for neck swelling, polydipsia, polyuria, polyphagia, and marked weight changes, Hematologic/Lymphatic: Negative for swollen nodes, abnormal bleeding, and unusual bruising. 07:15 Cardiovascular: Positive for chest pain, palpitations, Negative for edema, orthopnea. 07:15 Respiratory: Positive for dyspnea on exertion, shortness of breath, at rest. wheezing, expiratory. 07:15 Skin: Positive for diaphoresis. Exam: 07:15 Constitutional: This is a well developed, well nourished patient who is awake, alert, kdr and in moderate to severe distress. Head/Face: Normocephalic, atraumatic. Eyes: Pupils equal round and reactive to light, extra-ocular motions intact. Lids and lashes normal. Conjunctiva and sclera are non-icteric and not injected. Cornea within normal limits. Periorbital areas with no swelling, redness, or edema. Neck: Trachea midline, no thyromegaly or masses palpated, and no cervical lymphadenopathy. Supple, full range of motion without nuchal rigidity, or vertebral point tenderness. No Meningismus. Chest/axilla: Normal chest wall appearance and motion. Nontender with no deformity. No lesions are appreciated. Abdomen/GI: Soft, non-tender, with normal bowel sounds. No distension or tympany. No guarding or rebound. No evidence of tenderness throughout. Back: No spinal tenderness. No costovertebral tenderness. Full range of motion. Skin: Warm, dry with normal turgor. Normal color with no rashes, no lesions, and no evidence of cellulitis. MS/ Extremity: Pulses equal, no cyanosis. Neurovascular intact. Full, normal range of motion. Neuro: Awake and alert, GCS 15, oriented to person, place, time, and situation. Cranial nerves II-XII grossly intact. Motor strength 5/5 in all extremities. Sensory grossly intact. Cerebellar exam normal. Normal gait. Psych: Awake, alert, with orientation to person, place and time. Behavior, mood, and affect are within normal limits. 07:15 Cardiovascular: Rate: tachycardic, actual rate is 156 bpm, Rhythm: regular, Pulses: no pulse deficits are appreciated, Heart sounds: normal, Edema: is not appreciated, JVD: is not appreciated. 07:15 ECG was reviewed by the Attending Physician. Vital Signs: 06:58 Pulse 186 MON; Resp 26; Pulse Ox 99% on R/A; sg 06:58 BP 187 / 118; sg 07:10 BP 160 / 115; sg 07:27 BP 108 / 80; Pulse 125 MON; Resp 36 S; Pulse Ox 98% on 100% Nebulizer Mask; sg 07:40 BP 126 / 98; Pulse 124; Resp 18; Temp 97.0; Pulse Ox 100% on Nebulizer Mask; sg 07:56 BP 126 / 98; Pulse 125; Pulse Ox 100% on Nebulizer Mask; sg 08:05 BP 106 / 93; Pulse 122 MON; Resp 26 S; Pulse Ox 100% ; sg 08:41 BP 116 / 92; Pulse 125; Resp 26; Pulse Ox 98% ; sv 09:38 BP 130 / 99; Pulse 125; Resp 27; Pulse Ox 98% ; sv 10:04 BP 127 / 95; Pulse 124; Resp 24 S; Pulse Ox 99% on R/A; Pain 2/10; sg 10:30 BP 130 / 92; Pulse 122 MON; Resp 24 S; Pulse Ox 100% on R/A; sg 08:05 Sinus tachycardia sg 10:30 Sinus tachycardia sg MDM: 09:11 Patient medically screened. kdr 09:11 Data reviewed: vital signs, nurses notes, lab test result(s), EKG, radiologic studies. kdr Counseling: I had a detailed discussion with the patient and/or guardian regarding: the historical points, exam findings, and any diagnostic results supporting the discharge/admit diagnosis, lab results, radiology results, the need for further work-up and treatment in the hospital. Physician consultation: César Calderon MD. 10:45 ED course: The patient is feeling much better and his symptoms have largely resolved. kdr Will place in ICU until cardiology clearance for the floor. 05/16 07:08 Order name: Basic Metabolic Panel; Complete Time: 08:31 sg 05/16 07:08 Order name: CBC with Diff; Complete Time: 08:31 sg 05/16 07:08 Order name: LFT's; Complete Time: 08:31 05/16 07:08 Order name: Magnesium; Complete Time: 08:31 sg 05/16 07:08 Order name: NT PRO-BNP; Complete Time: 08:31 sg 05/16 07:08 Order name: PT-INR; Complete Time: 08:31 sg 05/16 07:08 Order name: Troponin (emerg Dept Use Only); Complete Time: 08:31 sg 05/16 10:18 Order name: Basic Metabolic Panel EDMS 05/16 10:18 Order name: Basic Metabolic Panel EDMS 05/16 10:18 Order name: CBC with Automated Diff EDMS 05/16 10:18 Order name: CBC with Automated Diff EDMS 05/16 10:18 Order name: Troponin I EDOH 05/16 10:18 Order name: Troponin I EDMS 05/16 10:18 Order name: Troponin I EDOH 05/16 07:08 Order name: XRAY Chest (1 view) 05/16 07:08 Order name: EKG; Complete Time: 07:20 05/16 07:08 Order name: Cardiac monitoring; Complete Time: 07:10 05/16 07:08 Order name: EKG - Nurse/Tech; Complete Time: 07:10 05/16 08:00 Order name: EKG Electrocardiogram EDOH 05/16 10:17 Order name: CONS Physician Consult EDOH 05/16 10:17 Order name: Regular EDMS 05/16 10:17 Order name: EKG Electrocardiogram EDMS 05/16 10:18 Order name: EKG Electrocardiogram EDMS 05/16 10:18 Order name: EKG Electrocardiogram EDMS 05/16 10:18 Order name: EKG Electrocardiogram EDMS 05/16 07:08 Order name: IV Saline Lock; Complete Time: 07:10 05/16 07:08 Order name: Labs collected and sent; Complete Time: 07:10 05/16 07:08 Order name: O2 Per Protocol; Complete Time: 07:10 05/16 07:08 Order name: O2 Sat Monitoring; Complete Time: 07:10 05/16 07:42 Order name: Labs - recollect needed; Complete Time: 07:55 bd EC:15 Rate is 156 beats/min. Rhythm is regular, Sinus tachycardia with No ectopy. QRS Mcintosh is kdr Normal. [place] interval is normal. QRS interval is normal. QT interval is normal. No Q waves. T waves are Normal. No ST changes noted. Clinical impression: Sinus tachycardia. Administered Medications: 07:05 Drug: Lopressor 5 mg Route: IVP; Site: right wrist; sg 07:06 Drug: Versed 2 mg Route: IVP; Site: right wrist; sg 07:50 Follow up: Response: No adverse reaction; Pain is decreased sg 07:08 Drug: fentaNYL (PF) 25 mcg Route: IVP; Site: right wrist; sg 07:50 Follow up: Response: No adverse reaction; Pain is decreased sg 07:18 Drug: Lopressor 5 mg Route: IVP; Site: left hand; sg 07:22 Drug: Xopenex (3) 1.25 mg Route: Inhalation; sg 07:26 Drug: SOLU-Medrol 125 mg Route: IVP; Site: left hand; sg Disposition: 05/16/18 09:11 Hospitalization ordered by Juan Tinajero for Inpatient Admission. Preliminary diagnosis is SVT, SOB. - Bed requested for Intensive Care Unit. - Status is Inpatient Admission. sg - Condition is Serious. - Problem is an acute exacerbation. - Symptoms have improved. UTI on Admission? No Signatures: Dispatcher [employer] EDMS Jo Abrue Steven, RN RN Galileo Washburn MD MD kdr Corrections: (The following items were deleted from the chart) 10:22 09:11 Hospitalization Ordered by César Calderon MD for Inpatient Admission. Preliminary kdr diagnosis is SVT, SOB. Bed requested for Intensive Care Unit. Status is Inpatient Admission. Condition is Serious. Problem is an acute exacerbation. Symptoms have improved. UTI on Admission? No. kdr 10:40 10:22 05/16/2018 09:11 Hospitalization Ordered by Juan Tinajero MD for Inpatient bd Admission. Preliminary diagnosis is SVT, SOB. Bed requested for Intensive Care Unit. Status is Inpatient Admission. Condition is Serious. Problem is an acute exacerbation. Symptoms have improved. UTI on Admission? No. kdr 12:33 10:40 05/16/2018 09:11 Hospitalization Ordered by Juan Tinajeor MD for Inpatient sg Admission. Preliminary diagnosis is SVT, SOB. Bed requested for Intensive Care Unit. Status is Inpatient Admission. Condition is Serious. Problem is an acute exacerbation. Symptoms have improved. UTI on Admission? No. bd
--- NOTE | 2018-05-16 09:24 | RAD REPORT ---
EXAM DESCRIPTION: RAD - Chest Single View - 05/16/2018 8:43 am CLINICAL HISTORY: Chest pain, palpitations, shortness of breath, history of supraventricular tachyca rdia COMPARISON: January 26, 2018 TECHNIQUE: AP portable chest image was obtained 0745 hours . FINDINGS: No consolidation, mass or significant failure finding. Cardiomegaly is present similar to comparison. Resuscitation paddles overlie the chest. Lung parenchyma is not clearly different from co mparison. There may be some minimal lung base interstitial edema or infiltrate. Current examination s hows a more shallow inspiratory effort. Trachea is midline. No measurable pleural effusion and no pne umothorax. No acute bony abnormality seen. No acute aortic findings suspected. IMPRESSION: No focal consolidation, mass or diffuse pulmonary edema pattern. Inspiratory effort is more shallow. Accentuated lung base markings may simply be artifact of the insp iratory effort. A minimal lung base interstitial edema or infiltrate not excluded.
--- NOTE | 2018-05-16 09:42 | EKG ---
Test Date: 2018-05-16 Test Time: 06:58:32 Pediatrics Hospitalist: ASHISH MEASUREMENT RESULTS: Intervals: Rate: 163 VA: 128 QRSD: 76 QT: 338 QTc: 556 [place]: P: VA: 128 QRS: 46 T: 269 INTERPRETIVE STATEMENTS: Atrial flutter with variable AV block Non specific ST abnormality Abnormal ECG Compared to ECG 01/28/2018 11:03:11 Atrial premature complex(es) now present Ventricular premature complex(es) now present Sinus rhythm no longer present Electronically Signed On 05-16-18 09:42:10 COOK TORTILLA by Wilfredo Morel
[2018-05-16] MEDS ORDERED: ACETAMINOPHEN 500 MG TAB PO PRN (10:14)
[2018-05-16] MEDS ORDERED: MORPHINE 4 MG/ML SYR IV PRN (10:14)
[2018-05-16] MEDS ORDERED: ONDANSETRON 4 MG/2 ML VIAL IV PRN (10:14)
[2018-05-16 12:53] VITALS: BMI 36.9
[2018-05-16] MEDS ORDERED: POTASSIUM 25 MEQ EFFERV TAB PO ONE (13:56)
[2018-05-16] MEDS ORDERED: METOPROLOL TARTRATE 5 MG/5 ML INJ IV STA (14:37)
[2018-05-16] MEDS ORDERED: METOPROLOL TAR 50 MG TAB PO ONE (14:38)
[2018-05-16] MEDS ORDERED: LORazepam 2 MG/ML VIAL IV PRN (15:40)
[2018-05-16] MEDS ORDERED: AMIODARONE HCL 75 MG in D5W 100 ML IV STA (15:43)
[2018-05-16] MEDS: METOPROLOL TAR 50 MG TAB PO SCH (17:11)
[2018-05-16] MEDS: APIXABAN 5 MG TABLET PO SCH (17:11)
--- NOTE | 2018-05-16 17:15 | EKG ---
Test Date: 2018-05-16 Test Time: 15:51:53 Multicraft Operator: ZACK MEASUREMENT RESULTS: Intervals: Rate: 124 RI: 246 QRSD: 130 QT: 222 QTc: 318 [place]: P: 58 RI: 246 QRS: 34 T: 84 INTERPRETIVE STATEMENTS: Atrial flutter with 2:[address] abnormality Left ventricular hypertrophy Abnormal ECG Compared to ECG 05/16/2018 07:41:11 no significant change from previous ECG Electronically Signed On 05-16-18 17:14:38 TEACHER ADVISOR by Wilfredo Morel
--- NOTE | 2018-05-16 17:17 | EKG ---
Test Date: 2018-05-16 Test Time: 07:41:11 Fresh Meat Grader: AMG MEASUREMENT RESULTS: Intervals: Rate: 124 [place]: QRSD: 84 QT: 342 QTc: 491 [place]: P: -88 [place]: QRS: 56 T: 268 INTERPRETIVE STATEMENTS: Atrial flutter with 2:1 AV conduction Left ventricular hypertrophy Non specific ST abnormality Abnormal ECG Compared to ECG 05/16/2018 06:58:32 Left ventricular hypertrophy now present Electronically Signed On 05-16-18 17:16:51 PREBOARDER by Wilfredo Morel
--- NOTE | 2018-05-16 17:18 | ECHO ---
HEIGHT: 5 ft 7 in WEIGHT: 236 lb 0 oz DATE OF STUDY: 05/16/[address]: Wilfredo Morel MD 2-DIMENSIONAL: YES M.MODE: YES DOPPLER: YES COLOR FLOW: YES TDS: PORTABLE: DEFINITY: BUBBLE STUDY: DIAGNOSIS: SUPRAVENTRICULAR TACHYCARDIA, ATRIAL FIBRILLATION. CARDIAC HISTORY: CATHERIZATION: NO SURGERY: NO PROSTHETIC VALVE: NO PACEMAKER: NO MEASUREMENTS (cm) DIASTOLIC (NORMALS) SYSTOLIC (NORMALS) IVSd 1.1 (0.6-1.2) LA Diam 4.3 (1.9-4.0) LVEF 44% LVIDd 5.6 (3.5-5.7) LVIDs 4.3 (2.0-3.5) %FS 22% LVPWd 1.2 (0.6-1.2) Ao Diam 2.6 (2.0-3.7) 2 DIMENSIONAL ASSESSMENT: RIGHT ATRIUM: NORMAL LEFT ATRIUM: DILATED RIGHT VENTRICLE: NORMAL LEFT VENTRICLE: NORMAL TRICUSPID VALVE: NORMAL MITRAL VALVE: NORMAL PULMONIC VALVE: NORMAL AORTIC VALVE: NORMAL PERICARDIAL EFFUSION: NONE AORTIC ROOT: NORMAL LEFT VENTRICULAR WALL MOTION: GLOBAL HYPOKINESIS, MILD. DOPPLER/COLOR FLOW: IMPAIRED LEFT VENTRICULAR RELAXATION. COMMENTS: THIS STUDY WAS DONE IN ATRIAL FLUTTER. HEART RATE 123 BEATS PER MINUTE. DEPRESSED LEFT VENTRICULAR EJECTION FRACTION. DILATED LEFT ATRIUM. IMPAIRED LEFT VENTRICULAR RELAXATION. TECHNOLOGIST: ROMAN REDD
--- NOTE | 2018-05-16 17:20 | RAD REPORT ---
EXAM DESCRIPTION: RAD - Chest Single View - 05/16/2018 4:54 pm CLINICAL HISTORY: PICC line placement COMPARISON: May 16 FINDINGS: Portable chest was obtained following placement of a right upper extremity PICC line. The catheter tip is in the distal SVC.
[2018-05-16] MEDS ORDERED: SOTALOL HCL 80 MG TAB PO SCH ×2 (18:00)
[2018-05-16] MEDS ORDERED: APIXABAN 5 MG TABLET PO SCH ×2 (18:00)
[2018-05-16] MEDS: AMIODARONE HCL 450 MG in D5W 241 ML IV SCH (18:19)
--- NOTE | 2018-05-16 20:17 | CON ---
Chief Complaint: Heart racing. History Of Present Illness: Mr. Lara is a gentleman, who has had atrial fibrillation in the past. H davina has been cardioverted. He has been on Betapace and metoprolol. Recently, the doses of metoprolol were changed because his heart rate was too slow. He is feeling other side effects of beta-blockers and today he went into rapid heart rate again. Emergency site medical director gave a verbal report th at his heart rate was 250, received several doses of adenosine and then a cardioversion, and then cam e to our hospital. He was actually in atrial flutter when he came to the hospital. He now seems to be in sinus tachycardia. It is possible it is still atrial flutter and it is very possible that what he had when the EMT saw him was atrial flutter with 1:1 conduction. It is actually a little bit katelyn prising to me that we do not have those rhythm strips left by the banking pin adjuster, but we will try and get them so his chart is full of all the information we need to help him. Presently, I do not think he is in atrial flutter. I think it is sinus tach at 122. The patient does not have coronary heart disease. He does not have diabetes. He has underlying hypertension, never used tobacco. Physical Examination: Vital Signs: 5 feet 7 inches and 236 pounds. HEENT : Normal. LUNGS: Clear. Heart: Rapid, regular. Extremities: No cyanosis, clubbing, or edema. We should do an echocardiogram to repeat EKG, see if he needs to be cardioverted right now. He is fu lly anticoagulated with Eliquis. We will start an amiodarone drip and transfer him to Dr. Maria for an EP procedure or if that is unable to happen because of [facility] being full. If he is s table enough, he could be discharged home and see Dr. Maria either on the or 24 of May. He already has an appointment to see Dr. Maria. Thank you very much for your kind referral of Mr. Lara. I will follow him with you. OKSANA/FANTA Voice ID: [id number] Report ID: [id number]
[2018-05-16] MEDS ORDERED: METOPROLOL TAR 50 MG TAB PO SCH (21:00)
[2018-05-17] MEDS: AMIODARONE HCL 450 MG in D5W 241 ML IV SCH (02:21)
[2018-05-17 04:47] LABS: Absolute Lymphocytes (CBC) 1.3 K/uL (0.7-4.9); Absolute Monocytes 0.9 K/uL (0.1-1.3); Absolute Neutrophil 15.7 K/uL (1.8-8.0); Basophils % 0.2 % (0-1.3); Eosinophils % 0.1 % (0-4.4); Hematocrit 41.8 % (39.6-49.0); Lymphocytes % 7.1 % (15.3-44.8); Monocytes % 4.8 % (3.3-12.3); RBC Red Blood Cell Count 4.48 M/uL (4.33-5.43)
[2018-05-17 05:11] LABS: BUN Blood Urea Nitrogen 13 mg/dL (7-18); Bicarbonate 26 mmol/L (21-32); Glucose Level 192 mg/dL (74-106); Potassium 4.4 mmol/L (3.5-5.1); Sodium Level 138 mmol/L (136-145)
[2018-05-17] MEDS ORDERED: ATORVASTATIN 10 MG TAB PO SCH (06:00)
[2018-05-17] MEDS: METOPROLOL TAR 50 MG TAB PO SCH (06:48)
[2018-05-17] MEDS: APIXABAN 5 MG TABLET PO SCH (06:49)
[2018-05-17] MEDS ORDERED: MIDAZOLAM HCL 2 MG/2 ML INJ ONE ×2 (07:32→08:07)
[2018-05-17] MEDS ORDERED: FLUMAZENIL 0.1 MG/ML (5 mL VIAL) IV ONE (07:33)
[2018-05-17 08:19] LABS: Blood Morphology Comment NOT SEEN (NOT SEEN); Platelet Estimate ADEQ
[2018-05-17] MEDS ORDERED: ASPIRIN EC 81 MG TAB PO SCH (09:00)
[2018-05-17] MEDS ORDERED: AMIODARONE HCL 200 MG TAB PO ONE (10:00)
[2018-05-17 12:22] VITALS: BP 124/86; TEMP 98
[2018-05-17 12:41] VITALS: O2SAT 98
--- NOTE | 2018-05-17 19:24 | HP ---
Date of Admission: 05/16/2018 Chief Complaint: Atrial flutter with fast ventricular response. History Of Present Illness: A 58-year-old male who is known to have history of chronic atrial fibril lation, was having palpitations, was brought to the ER. On the way, the patient had a medication tri al as well as cardioversion done. The patient still was in atrial flutter with the rate of over 180. At this point, the patient is admitted. The patient has been following Dr. Herrera for atrial flut ter for some time. He is already on Eliquis, metoprolol, sotalol, Lipitor. Past Medical History: History of hypertension, high cholesterol, and atrial fibrillation. Family History: Noncontributory. Personal History: No known allergies. Home Medicines: Lipitor, sotalol, metoprolol, Eliquis. Review of Systems: No fever, chills, rigors. Physical Examination: General: Revealed a 58-year-old obese male, conversant and alert. HEENT: Negative. Neck: Supple. JVD negative. Chest: Clear. Heart: Tachycardia. Irregularity. Abdomen: Soft. Extremities: No edema. Laboratory Data: White count 9.9. Chem profile; potassium 3.3, random blood sugar of 152. BNP 1573 . Assessment: 1.Chronic atrial fibrillation with rapid ventricular response status post cardioversion. 2.Hypertension. 3.Hyperlipidemia. Plan: The patient received oral potassium and IV Lopressor. The patient is scheduled for cardiovers ion, elective, this morning. REGAN/FANTA Voice ID: [id number]
--- NOTE | 2018-05-18 04:31 | OP ---
Date of Procedure: 05/17/2018 Surgeon: Ethan Herrera MD Procedure: Direct current cardioversion. Indication: Atrial fibrillation and atrial flutter. History Of Present Illness: Mr. Lara was admitted on 05/16/2018, with rapid 1:1 atrial flutter. He was placed on IV amiodarone overnight. In the past, he has tried Bystolic and metoprolol and he was taking them both when he had this episode. Metoprolol was discontinued. Betapace was discontinued. He was placed on IV amiodarone and remained in atrial fibrillation. He received 10 mg of Versed IV sedation. He was shocked with 100 joules synchronized shock and converted to sinus rhythm. There we re no complications. Total conscious sedation was 30 minutes. Medical Physiologist: Ethan Herrera M.D. Final Diagnosis: Successful cardioversion of atrial flutter to sinus rhythm. The patient will be go ing home on 400 mg of amiodarone p.o. b.i.d. He has an appointment with Dr. Vicki Arnett at [facility] on May 24, 2018, for him to be considered for an ablation. AAKASH/FANTA Voice ID: [id number] Report ID: [id number]
--- NOTE | 2018-05-18 07:02 | EKG ---
Test Date: 2018-05-17 Test Time: 08:13:14 Hotel Lobby Concierge: ASHISH MEASUREMENT RESULTS: Intervals: Rate: 67 WA: 156 QRSD: 88 QT: 482 QTc: 509 [place]: P: 60 WA: 156 QRS: 28 T: 20 INTERPRETIVE STATEMENTS: Normal sinus rhythm Possible Left atrial enlargement Left ventricular hypertrophy Prolonged QT Abnormal ECG Compared to ECG 05/16/2018 15:51:53 Prolonged QT interval now present Atrial flutter no longer present 2:1 AV block no longer present ST (T wave) deviation no longer present Electronically Signed On 05-18-18 06:53:30 EARLY INTERVENTIONIST by Ethan Herrera
== END 2018-05-17 12:30 | disposition home or self-care (01) | DRG 310 ==
LOC: ER 07:17 → ERHOLD 10:08 → 3RD-ICU 12:05
PROVIDERS: ADMIT Internal Medicine; ATTEND Internal Medicine
PROC: 02HV33Z Insertion of Infusion Device into Superior Vena Cava, Percutaneous Approach (ICD-10-PCS; 2018-05-16)
PROC: B548ZZA Ultrasonography of Superior Vena Cava, Guidance (ICD-10-PCS; 2018-05-16)
PROC: 5A2204Z Restoration of Cardiac Rhythm, Single (ICD-10-PCS; principal; 2018-05-17)
DX: I48.92 Unspecified atrial flutter (principal); Z79.01 Long term (current) use of anticoagulants; I48.2 Chronic atrial fibrillation; I10 Essential (primary) hypertension; E78.00 Pure hypercholesterolemia, unspecified; E78.5 Hyperlipidemia, unspecified
CPT/HCPCS: 36415; 71045; 80048; 80076; 83735; 83880; 84484; 85025; 85610; 93005; 93306; 99291; 99292; J0282; J2250; J7060